=== PATIENT | male | born 1935 | race Caucasian/White ===

== ENCOUNTER 2024-09-26 15:49 | Emergency (ER) | payer MEDICARE ==
[2024-09-26 16:03] VITALS: TEMP 97.7
--- NOTE | 2024-09-26 16:54 | ED ---
Male Urogenital HPI - General Chief complaint: Urogenital Stated complaint: Urogenital Time Seen by Provider: 09/26/24 16:49 Source: patient, RN notes reviewed Mode of arrival: ambulatory Limitations: no limitations - History of Present Illness Initial comments: 89-year-old male presenting for hematuria x 4 days. States last Wednesday he began to notice light pink in his urine. This progressively worsened to dark red blood in the urine. He was seen at [facility] ER 2 days ago where they told him he had a UTI and was retaining urine via bladder scan so they placed a Mathews catheter. He has been taking Keflex for the UTI. Denies abdominal or flank pain. Denies fever, nausea, vomiting. States he does have a history of a enlarged prostate however has never had this issue before. States over the past day the Mathews has been draining dark red blood. He had an appointment with his reach truck operator today who looked at the Mathews and told him to come to the ER. Patient does take Plavix and Eliquis. - Related Data Allergies Allergy/AdvReac Type Severity Reaction Status Date / Time No Known Allergies Allergy Verified 09/26/24 16:03 Review of Systems ROS Statement: Those systems with pertinent positive or pertinent negative responses have been documented in the HPI. ROS Other: All systems not noted in ROS Statement are negative. Past Medical History Past Medical History: Atrial Fibrillation, Diabetes Mellitus, Hyperlipidemia, Hypertension Additional Past Medical History / Comment(s): gout, History of Any Multi-Drug Resistant Organisms: None Reported Past Surgical History: Cholecystectomy, Heart Catheterization With Stent Additional Past Surgical History / Comment(s): repaired ulcer Past Psychological History: No Psychological Hx Reported, Anxiety Smoking Status: Former smoker Past Alcohol Use History: Occasional Past Drug Use History: None Reported General Exam Limitations: no limitations General appearance: alert, in no apparent distress Head exam: Present: atraumatic, normocephalic, normal inspection Eye exam: Present: normal appearance, PERRL, EOMI. Absent: scleral icterus, conjunctival injection, periorbital swelling GI/Abdominal exam: Present: soft, normal bowel sounds. Absent: distended, tenderness, guarding, rebound, rigid exam: Present: other (Indwelling Mathews catheter draining dark red blood) Back exam: Absent: CVA tenderness (R), CVA tenderness (L) Neurological exam: Present: alert, oriented X3 Psychiatric exam: Present: normal affect, normal mood Skin exam: Present: warm, dry, intact, normal color. Absent: rash Course Vital Signs 09/26/24 09/26/24 15:57 18:15 Temperature 97.7 F Pulse Rate 60 69 Respiratory 20 16 Rate Blood Pressure 157/80 145/78 O2 Sat by Pulse 98 95 Oximetry Medical Decision Making - Medical Decision Making Was pt. sent in by a medical professional or institution (, DESTINY, TALENT SOLUTIONS MANAGER, urgent care, hospital, or fdc...) When possible be specific @ -Sent by patient's reach truck operator for hematuria Did you speak to anyone other than the patient for history (EMS, parent, family, police, friend...)? What history was obtained from this source @ -Patient's daughter supplemented history Did you review nursing and triage notes (agree or disagree)? Why? @ -I reviewed and agree with nursing and triage notes Were old charts reviewed (outside hosp., previous admission, EMS record, old EKG, old radiological studies, urgent care reports/EKG's, fdc records)? Report findings @ -No old charts were reviewed Differential Diagnosis (chest pain, altered mental status, abdominal pain women, abdominal pain men, vaginal bleeding, weakness, fever, dyspnea, syncope, headache, dizziness, GI bleed, back pain, seizure, CVA, palpatations, mental health, musculoskeletal)? @ -Urinary tract infection, Mathews catheter issue, nephrolithiasis, bladder carcinoma EKG interpreted by me (3pts min.). @ -None X-rays interpreted by me (1pt min.). @ -None done CT interpreted by me (1pt min.). @ -None done U/S interpreted by me (1pt. min.). @ -Ultrasound kidneys and bladder reveals no evidence for acute process, right renal cortical simple cysts, prostatomegaly What testing was considered but not performed or refused? (CT, X-rays, U/S, la bs)? Why? @ -None What meds were considered but not given or refused? Why? @ -None Did you discuss the management of the patient with other professionals (professionals i.e. DESTINY Deleon, TALENT SOLUTIONS MANAGER, lab, RT, psych nurse, social sciences instructor, patient services specialist, teacher, aircraft electronics technical officer, case therapist)? Give summary @ -No Was smoking cessation discussed for >3mins.? @ -No Was critical care preformed (if so, how long)? @ -No Were there social determinants of health that impacted care today? How? (Homelessness, low income, unemployed, alcoholism, drug addiction, transportation, low edu. Level, literacy, decrease access to med. care, shelter, rehab)? @ -No Was there de-escalation of care discussed even if they declined (Discuss DNR or withdrawal of care, Hospice)? DNR status @ -No What co-morbidities impacted this encounter? (DM, HTN, Smoking, COPD, CAD, Cancer, CVA, ARF, Chemo, Hep., AIDS, mental health diagnosis, sleep apnea, morbid obesity)? @ -None Was patient admitted / discharged? Hospital course, mention meds given and route, prescriptions, significant lab abnormalities, going to OR and other pertinent info. @ - discharge. 89-year-old male on Eliquis and Plavix presenting for hematuria x 4 days. Was diagnosed with UTI and urinary retention 2 days ago at [facility] where Mathews catheter was placed and patient was placed on Keflex. Denies any abdominal pain or flank pain. Patient is afebrile and well-anna earing. Mathews catheter is draining appropriately with dark red blood in the bag. Lab work remarkable for white blood cell count 10.8, hemoglobin normal at 13.5, creatinine 1.67 and BUN 41. Urinalysis reveals large amount of red blood cells and white blood cells, 4+ glucose and 2+ protein. Urine culture sent. Ultrasound kidneys and bladder reveals no evidence for acute process, right renal cortical simple cyst, prostatomegaly. Results were discussed with patient. Hematuria likely due to urinary tract infection and Mathews catheter on thinners. Patient's reach truck operator approved holding blood thinners for the night. Advised to continue Keflex and follow-up with urology. Appropriate return precautions discussed. Case was discussed with my ED attending Dr. Carbajal Undiagnosed new problem with uncertain prognosis? @ -No Drug Therapy requiring intensive monitoring for toxicity (Heparin, Nitro, Insulin, Cardizem)? @ -No Were any procedures done? @ -No Diagnosis/symptom? @ -Hematuria, urinary tract infection Acute, or Chronic, or Acute on Chronic? @ -Acute Uncomplicated (without systemic symptoms) or Complicated (systemic symptoms)? @ -Uncomplicated Side effects of treatment? @ -No Exacerbation, Progression, or Severe Exacerbation? @ -No Poses a threat to life or bodily function? How? (Chest pain, USA, MD, pneumonia, PE, COPD, DKA, ARF, appy, cholecystitis, CVA, Diverticulitis, Homicidal, Suicidal, threat to staff... and all critical care pts) @ -No - Lab Data Result diagrams: 09/26/24 17:07 09/26/24 17:07 Lab Results 09/26/24 09/26/24 09/26/24 Range/Units 17:07 17:07 17:07 WBC 10.8 H (3.8-10.6) k/uL RBC 5.08 (4.30-5.90) m/uL Hgb 13.5 (13.0-17.5) gm/dL Hct 43.8 (39.0-53.0) % MCV 86.1 (80.0-100.0) fL MCH 26.6 (25.0-35.0) pg MCHC 30.9 L (31.0-37.0) g/dL RDW 15.0 (11.5-15.5) % Plt Count 147 L (150-450) k/uL MPV 8.8 Neutrophils % 76 % Lymphocytes % 17 % Monocytes % 4 % Eosinophils % 1 % Basophils % 1 % Neutrophils # 8.2 H (1.3-7.7) k/uL Lymphocytes # 1.8 (1.0-4.8) k/uL Monocytes # 0.5 (0-1.0) k/uL Eosinophils # 0.1 (0-0.7) k/uL Basophils # 0.1 (0-0.2) k/uL Hypochromasia Slight PT (10.0-12.5) sec INR (<1.2) APTT (22.0-30.0) sec Sodium 135 L (137-145) mmol/L Potassium 4.3 (3.5-5.1) mmol/L Chloride 103 (98-107) mmol/L Carbon Dioxide 21 L (22-30) mmol/L Anion Gap 11 mmol/L BUN 41 H (9-20) mg/dL Creatinine 1.67 H (0.66-1.25) mg/dL Est GFR (CKD-EPI)AfAm 42 (>60 ml/min/1.73 sqM) Est GFR (CKD-EPI)NonAf 36 (>60 ml/min/1.73 sqM) Glucose 220 H (74-99) mg/dL Calcium 9.1 (8.4-10.2) mg/dL Total Bilirubin 0.7 (0.2-1.3) mg/dL AST 17 (17-59) U/L ALT 13 (4-49) U/L Alkaline Phosphatase 146 H (38-126) U/L Total Protein 6.2 L (6.3-8.2) g/dL Albumin 3.6 (3.5-5.0) g/dL Urine Color Dark Red Urine Appearance Turbid (Clear) Urine pH 5.5 (5.0-8.0) Ur Specific [place] 1.026 (1.001-1.035) Urine Protein 2+ H (Negative) Urine Glucose (UA) 4+ H (Negative) Urine Ketones Negative (Negative) Urine Blood Large H (Negative) Urine Nitrite Negative (Negative) Urine Bilirubin Negative (Negative) Urine Urobilinogen <2.0 (<2.0) mg/dL Ur Leukocyte Esterase Small H (Negative) Urine RBC >182 H (0-5) /hpf Urine WBC 164 H (0-5) /hpf Urine WBC Clumps Many H (None) /hpf Urine Yeast (Budding) Many H (None) /hpf 09/26/24 Range/Units 17:07 WBC (3.8-10.6) k/uL RBC (4.30-5.90) m/uL Hgb (13.0-17.5) gm/dL Hct (39.0-53.0) % MCV (80.0-100.0) fL MCH (25.0-35.0) pg MCHC (31.0-37.0) g/dL RDW (11.5-15.5) % Plt Count (150-450) k/uL MPV Neutrophils % % Lymphocytes % % Monocytes % % Eosinophils % % Basophils % % Neutrophils # (1.3-7.7) k/uL Lymphocytes # (1.0-4.8) k/uL Monocytes # (0-1.0) k/uL Eosinophils # (0-0.7) k/uL Basophils # (0-0.2) k/uL Hypochromasia PT 12.7 H (10.0-12.5) sec INR 1.2 H (<1.2) APTT 25.0 (22.0-30.0) sec Sodium (137-145) mmol/L Potassium (3.5-5.1) mmol/L Chloride (98-107) mmol/L Carbon Dioxide (22-30) mmol/L Anion Gap mmol/L BUN (9-20) mg/dL Creatinine (0.66-1.25) mg/dL Est GFR (CKD-EPI)AfAm (>60 ml/min/1.73 sqM) Est GFR (CKD-EPI)NonAf (>60 ml/min/1.73 sqM) Glucose (74-99) mg/dL Calcium (8.4-10.2) mg/dL Total Bilirubin (0.2-1.3) mg/dL AST (17-59) U/L ALT (4-49) U/L Alkaline Phosphatase (38-126) U/L Total Protein (6.3-8.2) g/dL Albumin (3.5-5.0) g/dL Urine Color Urine Appearance (Clear) Urine pH (5.0-8.0) Ur Specific [place] (1.001-1.035) Urine Protein (Negative) Urine Glucose (UA) (Negative) Urine Ketones (Negative) Urine Blood (Negative) Urine Nitrite (Negative) Urine Bilirubin (Negative) Urine Urobilinogen (<2.0) mg/dL Ur Leukocyte Esterase (Negative) Urine RBC (0-5) /hpf Urine WBC (0-5) /hpf Urine WBC Clumps (None) /hpf Urine Yeast (Budding) (None) /hpf Disposition Clinical Impression: Urinary tract infection, Hematuria Disposition: HOME SELF-CARE Condition: Stable Instructions (If sedation given, give patient instructions): Urinary Tract Infection in Men (ED) Additional Instructions: Follow-up with urology as discussed. Please return to the Emergency Department if symptoms worsen or any other concerns. Is patient prescribed a controlled substance at d/c from ED?: No Referrals: Sushant Mensah MD [Primary Care Provider] - 1-2 days Luis Felipe Montejo MD [STAFF PHYSICIAN] - 1-2 days Time of Disposition: 19:25
[2024-09-26 17:21] LABS: Basophils # (A) 0.1 k/uL (0-0.2); Basophils % (A) 1 %; Eosinophils # (A) 0.1 k/uL (0-0.7); Eosinophils % (A) 1 %; HCT 43.8 % (39.0-53.0); HGB 13.5 gm/dL (13.0-17.5); Hypochromasia Slight; Lymphocytes # (A) 1.8 k/uL (1.0-4.8); Lymphocytes % (A) 17 %; MCH 26.6 pg (25.0-35.0); MCHC 30.9 g/dL (31.0-37.0); MCV 86.1 fL (80.0-100.0); Mean Platelet Volume 8.8; Monocytes # (A) 0.5 k/uL (0-1.0); Monocytes % (A) 4 %; Neutrophils # (A) 8.2 k/uL (1.3-7.7); Neutrophils % (A) 76 %; Platelet Count 147 k/uL (150-450); RBC 5.08 m/uL (4.30-5.90); WBC 10.8 k/uL (3.8-10.6)
[2024-09-26 17:28] LABS: ALT 13 U/L (4-49); AST 17 U/L (17-59); African American GFR (CKD) 42 (>60 ml/min/1.73 sqM); Albumin 3.6 g/dL (3.5-5.0); Alkaline Phosphatase 146 U/L (38-126); Anion Gap 11 mmol/L; Blood Urea Nitrogen 41 mg/dL (9-20); Calcium 9.1 mg/dL (8.4-10.2); Carbon Dioxide 21 mmol/L (22-30); Chloride 103 mmol/L (98-107); Glucose 220 mg/dL (74-99); Non-African American GFR(CKD) 36 (>60 ml/min/1.73 sqM); Potassium 4.3 mmol/L (3.5-5.1); Sodium 135 mmol/L (137-145); Total Bilirubin 0.7 mg/dL (0.2-1.3); Total Protein 6.2 g/dL (6.3-8.2)
[2024-09-26 17:31] LABS: INR 1.2 (<1.2); Prothrombin Time 12.7 sec (10.0-12.5)
[2024-09-26 17:33] LABS: Appearance,Urine Turbid (Clear); Bilirubin,Urine Negative (Negative); Blood,Urine Large (Negative); Budding Yeast,Urine Many /hpf; Color,Urine Dark Red; Glucose,Urine (UA) 4+ (Negative); Ketones,Urine Negative (Negative); Leukocyte Esterase,Urine Small (Negative); Nitrite,Urine Negative (Negative); PH, Urine 5.5 (5.0-8.0); Protein,Urine 2+ (Negative); RBC,Urine >182 /hpf (0-5); Urobilinogen,Urine <2.0 mg/dL (<2.0); WBC,Urine 164 /hpf (0-5)
[2024-09-26 17:34] LABS: Specific Gravity,Urine 1.026 (1.001-1.035)
--- NOTE | 2024-09-26 18:19 | US ---
EXAMINATION TYPE: US renals and bladder DATE OF EXAM: 09/26/2024 COMPARISON: NONE CLINICAL INDICATION: Male, 89 years old with history of painless hematuria; patient states painless h ematuria. cannon TECHNIQUE: Grayscale imaging of the bilateral kidneys and urinary bladder: FINDINGS: EXAM MEASUREMENTS: Right Kidney: 11.6 x 5.8 x 5.2 cm Left Kidney: 10.8 x 4.4 x 4.8 cm slightly limited due to overlying bowel gas and rib shadows Right Kidney: multiple anechoic areas seen, largest measuring 1.7 x 1.4 x 1.5cm Left Kidney: wnl as best seen Bladder: cannon catheter seen Bilateral Jets seen: unable to evaluate prominent prostate seen measuring 5.0cm There is no evidence for hydronephrosis at this point in time. No nephrolithiasis is seen. No caitie s are identified. The urinary bladder is anechoic. IMPRESSION: 1. No evidence for acute process. 2. Right renal cortical simple cysts. 3. Prostatomegaly, correlate with serum PSA. [facility], , 09/26/2024 6:16 PM
[2024-09-26 19:38] VITALS: BP 157/75; PULSE 64; RESP 17
== END 2024-09-26 19:43 | disposition home or self-care (01) ==
LOC: EC 15:49
DX: N39.0 Urinary tract infection, site not specified (principal); Z87.891 Personal history of nicotine dependence
CPT/HCPCS: 36415; 51702; 76770; 80053; 81001; 85025; 85610; 85730; 87086; 99284

== ENCOUNTER 2024-10-26 05:48 | Day surgery (SDC) | payer MEDICARE ==
[2024-10-26] MEDS: IV FLUID CONTINUATION 1,000 ML IV ONE (06:47)
[2024-10-26] MEDS: DEXAMETHASONE SOD PHOSPHATE 4 MG/ML 1 ML VIAL IV ONE (06:54)
[2024-10-26] MEDS: LACTATED RINGERS 1,000 ML IV SCH (06:54)
[2024-10-26] MEDS: ONDANSETRON 4 MG/2 ML VIAL IVP ONE (06:54)
[2024-10-26 06:57] LABS: Glucose,Whole Blood 240 mg/dL (70-110)
[2024-10-26] MEDS ORDERED: HYDROmorphone 0.5 MG/0.5 ML SYRINGE IVP PRN (07:00)
[2024-10-26] MEDS: GENTAMICIN 100 MG in SODIUM CHLORIDE 0.9% 100 ML IVPB PRN (07:03)
[2024-10-26] MEDS ORDERED: ROCURONIUM 10 MG/ML (5 ML VIAL) IV ONE (08:12)
[2024-10-26] MEDS ORDERED: LIDOCAINE 1% INJ 10MG/ML (20 ML MDV) ONE (08:12)
[2024-10-26] MEDS ORDERED: PROPOFOL 10 MG/ML 20 ML VIAL IV ONE (08:12)
[2024-10-26] MEDS ORDERED: SUCCINYLCHOLINE CHLORIDE 200 MG/10 ML VIAL IV ONE (08:12)
[2024-10-26] MEDS ORDERED: NEOSTIGMINE 1 MG/ML 10 ML VIAL ONE (08:12)
[2024-10-26] MEDS ORDERED: fentaNYL (PF) 50 MCG/ML 2 ML AMP ONE (08:12)
[2024-10-26] MEDS ORDERED: GLYCOPYRROLATE 0.2 MG/ML 2 ML VIAL ONE (08:12)
--- NOTE | 2024-10-26 08:14 | P.HPIHPCON ---
History of Present Illness H&P Date: 10/24/24 Chief Complaint: Gross hematuria, bladder stone, bladder tumor This is an 89-year-old male with history of gross hematuria, underwent a cystoscopy which showed evidence of a bladder stone, with a possible mass beyond the bladder stone. Discussed given his persistent gross hematuria I do recommend proceeding with cystolitholapaxy, with a possible TURBT. He is aware of the risk which include but not limited to bleeding, infection, bladder perforation Consent for Procedure: I have explained the operation/procedure to the patient, including the risks, benefits, side effects, alternative therapies (including not receiving the proposed treatment or service), the likelihood of the patient achieving his/her goals, and potential recuperation problems for the procedure/sedation/analgesia, as well as any blood products, if indicated. I also explained to the patient the risks, benefits and side effects of the alternatives, as well as the risks related to not receiving the proposed procedure, care, treatment, or services. Past Medical History Past Medical History: Atrial Fibrillation, Cancer, Diabetes Mellitus, Deep Vein Thrombosis (DVT), Hyperlipidemia, Hypertension, Prostate Disorder, Skin Disorder Additional Past Medical History / Comment(s): gout, bloody urine, lft leg dvt, skin cancer, gets "shot once a month for skin sores" frquent urination History of Any Multi-Drug Resistant Organisms: None Reported Past Surgical History: Cholecystectomy, Heart Catheterization With Stent Additional Past Surgical History / Comment(s): repaired ulcer Past Anesthesia/Blood Transfusion Reactions: No Reported Reaction Date of Last Stent Placement:: unk Smoking Status: Former smoker Medications and Allergies Home Medications Medication Instructions Recorded Confirmed Type Apixaban [Eliquis] 5 mg PO BID 10/24/24 10/26/24 History Atorvastatin [Lipitor] 20 mg PO HS 10/24/24 10/26/24 History Cetirizine HCl 10 mg PO DAILY 10/24/24 10/26/24 History Clopidogrel [Plavix] 75 mg PO DAILY 10/24/24 10/26/24 History Empagliflozin [Jardiance] 25 mg PO DAILY 10/24/24 10/26/24 History Finasteride [Proscar] 5 mg PO DAILY 10/24/24 10/26/24 History Fluconazole 150 mg PO DAILY 10/24/24 10/26/24 History Glimepiride 4 mg PO BID 10/24/24 10/26/24 History Losartan Potassium 25 mg PO DAILY 10/24/24 10/26/24 History Metoprolol Tartrate [Lopressor] 25 mg PO BID 10/24/24 10/26/24 History Semaglutide [Ozempic] 1 dose INJ SA 10/24/24 10/26/24 History Tamsulosin [Flomax] 0.4 mg PO BID 10/24/24 10/26/24 History hydrOXYzine HCL [Hydroxyzine HCl] 10 mg PO DIRECTED PRN 10/24/24 10/26/24 History Allergies Allergy/AdvReac Type Severity Reaction Status Date / Time steroids Allergy Mild Swelling Uncoded 10/26/24 06:16 Surgical - Exam - General no distress, no pain - Eyes normal ocular movement, no pale - ENT normal nares, normal mucosa - Respiratory normal expansion, normal respiratory effort - Abdomen Abdomen: soft, non tender, no distended - Psychiatric oriented to time, oriented to person, oriented to place Assessment and Plan Assessment: OR for cystoscopy, cystolitholapaxy, possible TURBT
[2024-10-26] MEDS: ceFAZolin 2 GM in DEXTROSE 5% IN WATER 50 ML IVPB PRN (08:15)
[2024-10-26 09:15] VITALS: TEMP 98.1
--- NOTE | 2024-10-26 09:25 | P.OP ---
Date of Procedure: 10/26/24 Preoperative Diagnosis: bladder stone, bladder mass Postoperative Diagnosis: same Procedure(s) Performed: Cystolithalopaxy, TURBT(medium) Anesthesia: LUCIENA Surgeon: [place] Estimated Blood Loss (ml): 10 Pathology: other (bladder mass) Condition: stable Disposition: PACU Indications for Procedure: This is an 89-year-old male with history of gross hematuria, underwent a cystoscopy which showed evidence of a bladder stone, with a possible mass beyond the bladder stone. Discussed given his persistent gross hematuria I do recommend proceeding with cystolitholapaxy, with a possible TURBT. 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 He was prepped and draped in sterile fashion placed in a dorsolithotomy position. Cystoscope fitted 21 Irish sheath was inserted per urethra, cystoscopy was performed showed a small bladder stone along the lateral wall, with a bladder tumor adjacent to the tumor. Prostate was slightly enlarged and mildly occlusive. Bladder was moderately trabeculated. Using the holmium laser the stone was fragmented, stone fragments were irrigated using the stone basket. 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 Area of bleeding was controlled using fulguration, tumor edges was also fulgurated. Repeat cystoscopy showed no evidence of bleeding, or bladder perforation. At this time resectoscope withdrawn and a 20 Irish Mathews was placed with return of clear urine, the catheter was irrigated to clear. Patient tolerated procedure well was taken to recovery in stable condition
[2024-10-26 11:39] VITALS: RESP 18
[2024-10-26 12:17] VITALS: BP 131/65; PULSE 52
== END 2024-10-26 12:17 | disposition home or self-care (01) ==
LOC: OR 05:48
PROVIDERS: ATTEND Urology
DX: C67.2 Malignant neoplasm of lateral wall of bladder (principal); N32.89 Other specified disorders of bladder; N21.0 Calculus in bladder; N40.1 Benign prostatic hyperplasia with lower urinary tract symptoms; N13.8 Other obstructive and reflux uropathy; R31.0 Gross hematuria; I48.91 Unspecified atrial fibrillation; I10 Essential (primary) hypertension; I25.10 Atherosclerotic heart disease of native coronary artery without angina pectoris; Z95.1 Presence of aortocoronary bypass graft; Z95.5 Presence of coronary angioplasty implant and graft; E11.9 Type 2 diabetes mellitus without complications; E78.5 Hyperlipidemia, unspecified; M10.9 Gout, unspecified; Z79.01 Long term (current) use of anticoagulants; Z79.02 Long term (current) use of antithrombotics/antiplatelets; Z79.85 Long-term (current) use of injectable non-insulin antidiabetic drugs; Z79.84 Long term (current) use of oral hypoglycemic drugs; Z79.899 Other long term (current) drug therapy; Z87.891 Personal history of nicotine dependence; Z86.718 Personal history of other venous thrombosis and embolism; Z88.8 Allergy status to other drugs, medicaments and biological substances
CPT/HCPCS: 52317; 52235; 88307; C1769; J0330; J1100; J2710; J0690; J2405; J2003; J3010; J1580; J2704; J1596

== ENCOUNTER 2024-11-03 14:08 | Emergency (ER) | payer MEDICARE ==
[2024-11-03 14:34] VITALS: PULSE 64; TEMP 97.4
--- NOTE | 2024-11-03 16:17 | ED ---
Male Urogenital HPI - General Chief complaint: Urogenital Stated complaint: Urogenital issues, post op comps Time Seen by Provider: 11/03/24 15:13 Source: patient, RN notes reviewed Mode of arrival: wheelchair Limitations: no limitations - History of Present Illness Initial comments: This is an 89-year-old male who presents to the emergency department for hematuria. On 10/26 patient had a cystolitholopaxy and TURBT with Dr. Chino. On 10/30 he followed up with urology and had his Mathews catheter removed. He states that he did fine for the first day, however since then he has had hematuria that is progressively worsening. Today he essentially urinated straight blood and started to feel dizzy and lightheaded. He is on Plavix and Eliquis, which he j ust resumed yesterday. He finished a course of antibiotics yesterday as well. Denies any abdominal pain. - Related Data Home Medications Medication Instructions Recorded Confirmed Apixaban [Eliquis] 5 mg PO BID 10/24/24 11/03/24 Atorvastatin [Lipitor] 20 mg PO HS 10/24/24 11/03/24 Cetirizine HCl 10 mg PO DAILY 10/24/24 11/03/24 Clopidogrel [Plavix] 75 mg PO DAILY 10/24/24 11/03/24 Empagliflozin [Jardiance] 25 mg PO DAILY 10/24/24 11/03/24 Finasteride [Proscar] 5 mg PO HS 10/24/24 11/03/24 Glimepiride 4 mg PO BID-W/MEALS 10/24/24 11/03/24 Metoprolol Tartrate [Lopressor] 25 mg PO BID 10/24/24 11/03/24 Tamsulosin [Flomax] 0.4 mg PO BID 10/24/24 11/03/24 hydrOXYzine HCL [Hydroxyzine HCl] 10 mg PO HS 10/24/24 11/03/24 Losartan [Cozaar] 25 mg PO DAILY 11/03/24 11/03/24 Pantoprazole [Protonix] 40 mg PO DAILY 11/03/24 11/03/24 Semaglutide [Ozempic] 1 mg SQ SA 11/03/24 11/03/24 Allergies Allergy/AdvReac Type Severity Reaction Status Date / Time steroids Allergy Mild Swelling Uncoded 11/03/24 17:04 Review of Systems ROS Statement: Those systems with pertinent positive or pertinent negative responses have been documented in the HPI. ROS Other: All systems not noted in ROS Statement are negative. Past Medical History Past Medical History: Atrial Fibrillation, Cancer, Diabetes Mellitus, Deep Vein Thrombosis (DVT), Hyperlipidemia, Hypertension, Prostate Disorder, Skin Disorder Additional Past Medical History / Comment(s): gout, bloody urine, lft leg dvt, skin cancer, gets "shot once a month for skin sores" frquent urination History of Any Multi-Drug Resistant Organisms: None Reported Past Surgical History: Cholecystectomy, Heart Catheterization With Stent Additional Past Surgical History / Comment(s): repaired ulcer Past Anesthesia/Blood Transfusion Reactions: No Reported Reaction Date of Last Stent Placement:: unk Past Psychological History: Anxiety Smoking Status: Former smoker General Exam Limitations: no limitations General appearance: alert, in no apparent distress Head exam: Present: atraumatic, normocephalic, normal inspection Respiratory exam: Present: normal lung sounds bilaterally. Absent: respiratory distress, wheezes, rales, rhonchi, stridor Cardiovascular Exam: Present: regular rate, normal rhythm GI/Abdominal exam: Present: soft, normal bowel sounds. Absent: distended, tenderness, guarding, rebound, rigid Neurological exam: Present: alert, oriented X3, CN II-XII intact Psychiatric exam: Present: normal affect, normal mood Skin exam: Present: warm, dry, intact, normal color. Absent: rash Course Vital Signs 11/03/24 11/03/24 14:30 18:15 Temperature 97.4 F L Pulse Rate 64 64 Respiratory 16 18 Rate Blood Pressure 125/78 123/74 O2 Sat by Pulse 96 97 Oximetry Medical Decision Making - Medical Decision Making This is an 89 year old male who presents to the emergency department for lali turia. Was pt. sent in by a medical professional or institution? @ -No Did you speak to anyone other than the patient for history? @ -No Did you review nursing and triage notes? @ -Yes, and I agree, it is accurate with regards to the patient's symptoms. Were old charts reviewed? @ -No Differential Diagnosis? @ -Tumor, injury, infection, coagulopathy, this is not meant to be an all- inclusive list. EKG interpreted by me (3pts min.)? @ -EKG interpreted by me demonstrating the following: Sinus rhythm. Ventricular rate 65 bpm, [place] interval 239 ms, QRS duration 120 ms, QTc 385 ms. X-rays interpreted by me (1pt min.)? @ -Not obtained. CT interpreted by me (1pt min.)? @ -Not obtained. U/S interpreted by me (1pt. min.)? @ -Renal ultrasound obtained. My interpretation identifies no hydronephrosis bilaterally. What testing was considered but not performed? (CT, X-rays, U/S, labs)? Why? @ -None What meds were considered but not given? Why? @ -None Did you discuss the management of the patient with other professionals? @ -Yes, Dr. Chino, urology, who advised holding his blood thinners for another couple of days and following up in the office next week. Did you reconcile home meds? @ -No Was smoking cessation discussed for >3mins.? @ -No Was critical care preformed (if so, how long)? @ -No Were there social determinants of health that impacted care today? How? (Homelessness, low income, unemployed, alcoholism, drug addiction, transportation, low edu. Level, literacy, decrease access to med. care, skilled nursing, rehab)? @ -No Was there de-escalation of care discussed even if they declined? (Discuss DNR or withdrawal of care, Hospice)? @ -No What co-morbidities impacted this encounter? (DM, HTN, Smoking, COPD, CAD, Cancer, CVA, Hep., AIDS, mental health diagnosis, sleep apnea, morbid obesity)? @ -None Was patient admitted / discharged? @ -Discharged. Patient's hemoglobin is only slightly decreased at 12.6. Lactic acid mildly elevated at 2.1. Lab work otherwise unremarkable. Urinalys is demonstrates a large amount of blood and elevation in WBCs. Rare bacteria noted. Urine sent for culture. The amount of blood makes it difficult to fully characterize. He also just finished antibiotics yesterday. Renal ultrasound obtained. No hydronephrosis was identified. 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 Bladder scan performed and his postvoid residual was only 60 mL. Case discussed with Dr. Chino, urology. He advised having the patient hold his blood thinners for another couple of days and following up with him in the office next week. This was discussed with the patient. He is concerned about the frequent urination and poor bladder emptying. His postvoid residual suggests that he is able to fully empty his bladder. We did offer to replace his Mathews catheter, however he declined. There is also risk of his catheter clogging given the hematuria and possibility for blood clots. His daughter advised that she will call Dr. Chino's office on Wednesday for a follow-up appointment that week. Advised to hold his blood thinners for another couple of days and strict return parameters were discussed as well. Patient discharged home in stable condition. Case discussed with ED attending Dr. Dixon. Undiagnosed new problem with uncertain prognosis? @ -None Drug Therapy requiring intensive monitoring for toxicity (Heparin, Nitro, Insulin, Cardizem)? @ -None Were any procedures done? @ -None Diagnosis/symptom? @ -Hematuria Acute, or Chronic, or Acute on Chronic? @ -Acute Uncomplicated (without systemic symptoms) or Complicated (systemic symptoms)? @ -Uncomplicated Side effects of treatment? @ -None Exacerbation, Progression, or Severe Exacerbation] @ -Not applicable Poses a threat to life or bodily function? @ -No - Lab Data Result diagrams: 11/03/24 16:41 11/03/24 16:41 Lab Results 11/03/24 11/03/24 11/03/24 Range/Units 16:41 16:41 16:41 WBC 6.93 (4.50-10.00) 10*3/uL RBC 4.70 (4.40-5.60) 10*6/uL Hgb 12.6 L (13.0-17.0) g/dL Hct 39.2 L (39.6-50.0) % MCV 83.4 (80.0-97.0) fL MCH 26.8 L (27.0-32.0) pg MCHC 32.1 (32.0-37.0) g/dL Plt Count 149 (140-440) 10*3/uL MPV 10.8 (9.5-12.2) fL Immature Gran % (Auto) 1.0 % Neutrophils % 51.1 % Lymphocytes % 35.2 % Monocytes % 8.5 % Eosinophils % 3.3 % Basophils % 0.9 % Immature Gran # 0.07 H (0.00-0.04) 10*3/uL Neutrophils # 3.54 (1.80-7.70) 10*3/uL Lymphocytes # 2.44 (0.90-5.00) 10*3/uL Monocytes # 0.59 (0.20-1.00) 10*3/uL Eosinophils # 0.23 (0.04-0.35) 10*3/uL Basophils # 0.06 (0.00-0.10) 10*3/uL PT 13.0 H (10.0-12.5) sec INR 1.2 H (<1.2) APTT 26.2 (22.0-30.0) sec Sodium 134 L (137-145) mmol/L Potassium 4.9 (3.5-5.1) mmol/L Chloride 102 (98-107) mmol/L Carbon Dioxide 19 L (22-30) mmol/L Anion Gap 13 mmol/L BUN 35 H (9-20) mg/dL Creatinine 1.51 H (0.66-1.25) mg/dL Est GFR (CKD-EPI)AfAm 48 (>60 ml/min/1.73 sqM) Est GFR (CKD-EPI)NonAf 41 (>60 ml/min/1.73 sqM) Glucose 266 H (74-99) mg/dL Lactic Ac Sepsis Rflx Plasma Lactic Acid Mehran (0.7-2.0) mmol/L Calcium 9.4 (8.4-10.2) mg/dL Total Bilirubin 0.6 (0.2-1.3) mg/dL AST 19 (17-59) U/L ALT 19 (4-49) U/L Alkaline Phosphatase 168 H (38-126) U/L Total Protein 6.2 L (6.3-8.2) g/dL Albumin 3.6 (3.5-5.0) g/dL Urine Color Urine Appearance (Clear) Urine RBC (0-5) /hpf Urine WBC (0-5) /hpf Urine Bacteria (None) /hpf 11/03/24 11/03/24 11/03/24 Range/Units 16:41 16:52 17:05 WBC (4.50-10.00) 10*3/uL RBC (4.40-5.60) 10*6/uL Hgb (13.0-17.0) g/dL Hct (39.6-50.0) % MCV (80.0-97.0) fL MCH (27.0-32.0) pg MCHC (32.0-37.0) g/dL Plt Count (140-440) 10*3/uL MPV (9.5-12.2) fL Immature Gran % (Auto) % Neutrophils % % Lymphocytes % % Monocytes % % Eosinophils % % Basophils % % Immature Gran # (0.00-0.04) 10*3/uL Neutrophils # (1.80-7.70) 10*3/uL Lymphocytes # (0.90-5.00) 10*3/uL Monocytes # (0.20-1.00) 10*3/uL Eosinophils # (0.04-0.35) 10*3/uL Basophils # (0.00-0.10) 10*3/uL PT (10.0-12.5) sec INR (<1.2) APTT (22.0-30.0) sec Sodium (137-145) mmol/L Potassium (3.5-5.1) mmol/L Chloride (98-107) mmol/L Carbon Dioxide (22-30) mmol/L Anion Gap mmol/L BUN (9-20) mg/dL Creatinine (0.66-1.25) mg/dL Est GFR (CKD-EPI)AfAm (>60 ml/min/1.73 sqM) Est GFR (CKD-EPI)NonAf (>60 ml/min/1.73 sqM) Glucose (74-99) mg/dL Lactic Ac Sepsis Rflx Y Plasma Lactic Acid Mehran 2.1 H* (0.7-2.0) mmol/L Calcium (8.4-10.2) mg/dL Total Bilirubin (0.2-1.3) mg/dL AST (17-59) U/L ALT (4-49) U/L Alkaline Phosphatase (38-126) U/L Total Protein (6.3-8.2) g/dL Albumin (3.5-5.0) g/dL Urine Color Dark Red Urine Appearance Bloody (Clear) Urine RBC >182 H (0-5) /hpf Urine WBC >182 H (0-5) /hpf Urine Bacteria Few H (None) /hpf - Radiology Data Radiology results: report reviewed, image reviewed Disposition Clinical Impression: Hematuria Disposition: HOME SELF-CARE Instructions (If sedation given, give patient instructions): Hematuria (ED) Additional Instructions: Return to the emergency department with any new, worsening, or concerning symptoms. Hold your blood thinners for another 2 [address] Chino's office on Wednesday morning for a sooner follow-up appointment. If you get to the point where you are unable to urinate altogether or develop increasing abdominal pain, especially if it occurs even when you are not urinating, you need to return to the emergency department. Is patient prescribed a controlled substance at d/c from ED?: No Referrals: Sushant Mensah MD [Primary Care Provider] - 1-2 days Rancho Chino MD [STAFF PHYSICIAN] - 1-2 days Time of Disposition: 17:53
--- NOTE | 2024-11-03 16:42 | US ---
EXAMINATION TYPE: US kidneys/renal and bladder DATE OF EXAM: 11/03/2024 COMPARISON: 09/26/24 CLINICAL INDICATION: Male, 89 years old with history of Hematuria; gross hematuria, cystoscope last T hursday with removal of tumor TECHNIQUE: Grayscale imaging of the bilateral kidneys and urinary bladder: FINDINGS: EXAM MEASUREMENTS: Right Kidney: 11.3x5.0x4.5 cm Left Kidney: 10.8x4.5x4.0 cm Right Kidney: cortical cysts, largest measures 1.3x1.2x1.4cm, no hydro Left Kidney: echogenic focus measures 0.5cm, no hydro or masses Bladder: there is a 3.3x2.3x1.4cm area of focal thickening at the right posterior bladder wall at th e UVJ. There is a echogenic rimmed sonolucent area in this area as well ?ureterocele? Right jet not v isualized, no hydro. Bilateral Jets seen: Right jet not visualized There is no evidence for hydronephrosis at this point in time. No right renal calculi. Right simple a ppearing renal cortical cysts redemonstrated. Nonobstructing left renal 0.5 cm echogenic focus with l ayering appearance. No shadowing. Corticomedullary differentiation is maintained bilaterally. There i s focal thickening at the right posterior urinary bladder wall at the ureterovesical junction with an echogenic rim sonolucent area. Layering nonvascular material within the urinary bladder. Right urete ral jet not visualized. Enlarged prostate gland with incidental pulmonary place. IMPRESSION: 1. No hydronephrosis. 2. Suggested right ureterocele with adjacent focal wall thickening. Cannot exclude residual tumor ve rsus inflammatory changes from recent surgery. Consider direct visualization as clinically indicated versus CT urogram. 3. Layering debris within urinary bladder likely representing blood products in the setting of repor trinity hematuria. 4. Suggestive left renal milk of calcium cyst versus nonobstructing nonshadowing calculus. [facility], , 11/03/2024 4:40 PM
[2024-11-03 16:46] LABS: Basophils # (A) 0.06 10*3/uL (0.00-0.10); Basophils % (A) 0.9 %; Eosinophils # (A) 0.23 10*3/uL (0.04-0.35); Eosinophils % (A) 3.3 %; HCT 39.2 % (39.6-50.0); HGB 12.6 g/dL (13.0-17.0); Lymphocytes # (A) 2.44 10*3/uL (0.90-5.00); Lymphocytes % (A) 35.2 %; MCH 26.8 pg (27.0-32.0); MCHC 32.1 g/dL (32.0-37.0); MCV 83.4 fL (80.0-97.0); Mean Platelet Volume 10.8 fL (9.5-12.2); Monocytes # (A) 0.59 10*3/uL (0.20-1.00); Monocytes % (A) 8.5 %; Neutrophils # (A) 3.54 10*3/uL (1.80-7.70); Neutrophils % (A) 51.1 %; Platelet Count 149 10*3/uL (140-440); RDW 14.6 % (11.5-14.5); WBC 6.93 10*3/uL (4.50-10.00)
[2024-11-03 17:07] LABS: INR 1.2 (<1.2); Partial Thromboplastin Time 26.2 sec (22.0-30.0)
[2024-11-03 17:13] LABS: Bacteria,Urine Few /hpf; RBC,Urine >182 /hpf (0-5); WBC,Urine >182 /hpf (0-5)
[2024-11-03 17:14] LABS: ALT 19 U/L (4-49); AST 19 U/L (17-59); African American GFR (CKD) 48 (>60 ml/min/1.73 sqM); Albumin 3.6 g/dL (3.5-5.0); Alkaline Phosphatase 168 U/L (38-126); Anion Gap 13 mmol/L; Blood Urea Nitrogen 35 mg/dL (9-20); Calcium 9.4 mg/dL (8.4-10.2); Carbon Dioxide 19 mmol/L (22-30); Chloride 102 mmol/L (98-107); Glucose 266 mg/dL (74-99); Non-African American GFR(CKD) 41 (>60 ml/min/1.73 sqM); Potassium 4.9 mmol/L (3.5-5.1); Sodium 134 mmol/L (137-145); Total Bilirubin 0.6 mg/dL (0.2-1.3); Total Protein 6.2 g/dL (6.3-8.2)
[2024-11-03 17:14] LABS: Appearance,Urine Bloody (Clear); Color,Urine Dark Red
[2024-11-03 18:42] VITALS: BP 123/74; RESP 18
== END 2024-11-03 18:44 | disposition home or self-care (01) ==
LOC: EC 14:08
DX: R31.9 Hematuria, unspecified (principal); Z87.891 Personal history of nicotine dependence; Z79.01 Long term (current) use of anticoagulants; Z79.02 Long term (current) use of antithrombotics/antiplatelets; Z98.890 Other specified postprocedural states; Z88.8 Allergy status to other drugs, medicaments and biological substances
CPT/HCPCS: 36415; 51798; 76770; 80053; 81001; 83605; 85025; 85610; 85730; 87086; 93005; 99284

== ENCOUNTER 2025-01-02 17:53 | Inpatient (IN) | payer MEDICARE ==
[2025-01-02 18:43] LABS: Basophils # (A) 0.07 10*3/uL (0.00-0.10); Basophils % (A) 0.9 %; Eosinophils # (A) 0.24 10*3/uL (0.04-0.35); Eosinophils % (A) 3.0 %; HCT 41.9 % (39.6-50.0); HGB 13.3 g/dL (13.0-17.0); Lymphocytes # (A) 2.81 10*3/uL (0.90-5.00); Lymphocytes % (A) 35.7 %; MCH 26.2 pg (27.0-32.0); MCHC 31.7 g/dL (32.0-37.0); MCV 82.5 fL (80.0-97.0); Monocytes # (A) 0.67 10*3/uL (0.20-1.00); Monocytes % (A) 8.5 %; Neutrophils # (A) 3.87 10*3/uL (1.80-7.70); Neutrophils % (A) 49.1 %; Platelet Count 191 10*3/uL (140-440); RBC 5.08 10*6/uL (4.40-5.60); RDW 15.2 % (11.5-14.5); WBC 7.88 10*3/uL (4.50-10.00)
[2025-01-02 18:53] LABS: ALT 37 U/L (4-49); AST 32 U/L (17-59); African American GFR (CKD) 43 (>60 ml/min/1.73 sqM); Albumin 3.6 g/dL (3.5-5.0); Alkaline Phosphatase 187 U/L (38-126); Anion Gap 14 mmol/L; Blood Urea Nitrogen 43 mg/dL (9-20); Calcium 9.0 mg/dL (8.4-10.2); Carbon Dioxide 16 mmol/L (22-30); Chloride 106 mmol/L (98-107); Glucose 162 mg/dL (74-99); Non-African American GFR(CKD) 37 (>60 ml/min/1.73 sqM); Potassium 4.2 mmol/L (3.5-5.1); Sodium 136 mmol/L (137-145); Total Protein 6.2 g/dL (6.3-8.2)
[2025-01-02 19:04] LABS: INR 1.2 (<1.2); Partial Thromboplastin Time 27.2 sec (22.0-30.0); Prothrombin Time 12.5 sec (10.0-12.5)
--- NOTE | 2025-01-02 19:59 | ED ---
General Adult HPI - General Source: patient, family, RN notes reviewed Mode of arrival: ambulatory Limitations: no limitations <Richi Fountain - Last Filed: 01/02/25 23:04> <Dinorah Johnson - Last Filed: 01/03/25 05:44> - General Chief complaint: Urogenital Stated complaint: blood in urine Time Seen by Provider: 01/02/25 18:06 - History of Present Illness Initial comments: 89-year-old male presents emergency department with family for evaluation hematuria. Patient states he had a tumor removed several weeks ago by Dr. Chino states that he did develop a urinary tract infection shortly after. Patient states that he finished antibiotics initially thought the burning sensation was improving but has returned. Patient states that he developed blood in his urine that is mostly blood no clots denies fevers chills no flank pain patient contacted urologist advised to come emergency department. (Richi Fountain) - Related Data Home Medications Medication Instructions Recorded Confirmed Apixaban [Eliquis] 5 mg PO BID 10/24/24 11/03/24 Atorvastatin [Lipitor] 20 mg PO HS 10/24/24 11/03/24 Cetirizine HCl 10 mg PO DAILY 10/24/24 11/03/24 Clopidogrel [Plavix] 75 mg PO DAILY 10/24/24 11/03/24 Empagliflozin [Jardiance] 25 mg PO DAILY 10/24/24 11/03/24 Finasteride [Proscar] 5 mg PO HS 10/24/24 11/03/24 Glimepiride 4 mg PO BID-W/MEALS 10/24/24 11/03/24 Metoprolol Tartrate [Lopressor] 25 mg PO BID 10/24/24 11/03/24 Tamsulosin [Flomax] 0.4 mg PO BID 10/24/24 11/03/24 hydrOXYzine HCL [Hydroxyzine HCl] 10 mg PO HS 10/24/24 11/03/24 Losartan [Cozaar] 25 mg PO DAILY 11/03/24 11/03/24 Pantoprazole [Protonix] 40 mg PO DAILY 11/03/24 11/03/24 Semaglutide [Ozempic] 1 mg SQ SA 11/03/24 11/03/24 Allergies Allergy/AdvReac Type Severity Reaction Status Date / Time steroids Allergy Mild Swelling Uncoded 11/03/24 17:04 Review of Systems ROS Other: All systems not noted in ROS Statement are negative. <Richi Fountain - Last Filed: 01/02/25 23:04> ROS Other: All systems not noted in ROS Statement are negative. <Dinorah Johnson - Last Filed: 01/03/25 05:44> ROS Statement: Those systems with pertinent positive or pertinent negative responses have been documented in the HPI. Past Medical History Past Medical History: Atrial Fibrillation, Cancer, Diabetes Mellitus, Deep Vein Thrombosis (DVT), Hyperlipidemia, Hypertension, Prostate Disorder, Skin Disorder Additional Past Medical History / Comment(s): gout, bloody urine, lft leg dvt, skin cancer, gets "shot once a month for skin sores" frquent urination History of Any Multi-Drug Resistant Organisms: None Reported Past Surgical History: Cholecystectomy, Heart Catheterization With Stent Additional Past Surgical History / Comment(s): repaired ulcer, bladder tumor removed 11/19 Past Anesthesia/Blood Transfusion Reactions: No Reported Reaction Date of Last Stent Placement:: unk Past Psychological History: Anxiety Smoking Status: Former smoker <Richi Fountain - Last Filed: 01/02/25 23:04> General Exam Limitations: no limitations General appearance: alert, in no apparent distress Head exam: Present: atraumatic, normocephalic, normal inspection Eye exam: Present: normal appearance, PERRL, EOMI. Absent: scleral icterus, conjunctival injection, periorbital swelling ENT exam: Present: normal exam, normal oropharynx, mucous membranes moist Neck exam: Present: normal inspection, full ROM. Absent: tenderness, meningismus, lymphadenopathy Respiratory exam: Present: normal lung sounds bilaterally. Absent: respiratory distress, wheezes, rales, rhonchi, stridor Cardiovascular Exam: Present: regular rate, normal rhythm, normal heart sounds. Absent: systolic murmur, diastolic murmur, rubs, gallop, clicks GI/Abdominal exam: Present: soft, normal bowel sounds. Absent: distended, tenderness, guarding, rebound, rigid <Richi Fountain - Last Filed: 01/02/25 23:04> Course Vital Signs 01/02/25 01/03/25 01/03/25 18:09 02:56 05:09 Temperature 97.4 F L Pulse Rate 60 101 H 92 Respiratory 20 20 18 Rate Blood Pressure 135/85 132/98 139/79 O2 Sat by Pulse 96 99 98 Oximetry Medical Decision Making - Lab Data Result diagrams: 01/02/25 18:25 01/02/25 18:25 <Richi Fountain - Last Filed: 01/02/25 23:04> - Lab Data Result diagrams: 01/02/25 18:25 01/02/25 18:25 <Dinorah Johnson - Last Filed: 01/03/25 05:44> - Medical Decision Making Was pt. sent in by a medical professional or institution (, PA, DATA PROCESSING MANAGER, urgent care, hospital, or longterm...) When possible be specific @ -Urology Did you speak to anyone other than the patient for history (EMS, parent, family, police, friend...)? What history was obtained from this source @ -No Did you review nursing and triage notes (agree or disagree)? Why? @ -I reviewed and agree with nursing and triage notes Were old charts reviewed (outside hosp., previous admission, EMS record, old EKG, old radiological studies, urgent care reports/EKG's, longterm records)? Report findings @ -No old charts were reviewed Differential Diagnosis (chest pain, altered mental status, abdominal pain women, abdominal pain men, vaginal bleeding, weakness, fever, dyspnea, syncope, headache, dizziness, GI bleed, back pain, seizure, CVA, palpatations, mental health, musculoskeletal)? @ -Differential Abdominal Pain Men: Appendicitis, cholecystitis, diverticulosis, ischemic bowel, pancreatitis, hepatitis, UTI, gastroenteritis, AAA, incarcerated hernia, bowel obstruction, constipation, inflammatory bowel, hepatitis, peptic ulcer disease, splenic infarction, perforated viscus, testicular torsion, this is not meant to be an all-inclusive list EKG interpreted by me (3pts min.). @ -None X-rays interpreted by me (1pt min.). @ -None done CT interpreted by me (1pt min.). @ -CT abdomen pelvis showing thickening of the bladder wall, pancreatic cyst. U/S interpreted by me (1pt. min.). @ -None done What testing was considered but not performed or refused? (CT, X-rays, U/S, labs)? Why? @ -None What meds were considered but not given or refused? Why? @ -None Did you discuss the management of the patient with other professionals (professionals i.e. DrTomasa, PA, DATA PROCESSING MANAGER, lab, RT, psych nurse, psychiatric social worker supervisor, visitor services associate, teacher, president and chief executive officer, bilingual patient support caseworker)? Give summary @ -Dr. Cintron for admission Was smoking cessation discussed for >3mins.? @ -No Was critical care preformed (if so, how long)? @ -No Were there social determinants of health that impacted care today? How? (Homelessness, low income, unemployed, alcoholism, drug addiction, transportation, low edu. Level, literacy, decrease access to med. care, residential, rehab)? @ -No Was there de-escalation of care discussed even if they declined (Discuss DNR or withdrawal of care, Hospice)? DNR status @ -No What co-morbidities impacted this encounter? (DM, HTN, Smoking, COPD, CAD, Cancer, CVA, ARF, Chemo, Hep., AIDS, mental health diagnosis, sleep apnea, morbid obesity)? @ -None Was patient admitted / discharged? Hospital course, mention meds given and route, prescriptions, significant lab abnormalities, going to OR and other pertinent info. @ -Admitted patient is having persistent worsening hematuria with increasing weakness found to have UTI sent in by urology secondary to recent procedure. Patient does have significant metabolic acidosis. Patient be kept on maintenance fluids, IV antibiotics and urology evaluation Undiagnosed new problem with uncertain prognosis? @ -No Drug Therapy requiring intensive monitoring for toxicity (Heparin, Nitro, Insulin, Cardizem)? @ -No Were any procedures done? @ -No Diagnosis/symptom? @ -Hematuria, weakness, metabolic acidosis, UTI Acute, or Chronic, or Acute on Chronic? @ -Acute Uncomplicated (without systemic symptoms) or Complicated (systemic symptoms)? @ -Complicated Side effects of treatment? @ -No Exacerbation, Progression, or Severe Exacerbation? @ -No Poses a threat to life or bodily function? How? (Chest pain, USA, LA, pneumonia, PE, COPD, DKA, ARF, appy, cholecystitis, CVA, Diverticulitis, Homicidal, Suicidal, threat to staff... and all critical care pts) @ -No (Richi Fountain) - Lab Data Lab Results 01/02/25 01/02/25 01/02/25 Range/Units 18:25 18:25 18:25 WBC 7.88 (4.50-10.00) 10*3/uL RBC 5.08 (4.40-5.60) 10*6/uL Hgb 13.3 (13.0-17.0) g/dL Hct 41.9 (39.6-50.0) % MCV 82.5 (80.0-97.0) fL MCH 26.2 L (27.0-32.0) pg MCHC 31.7 L (32.0-37.0) g/dL Plt Count 191 (140-440) 10*3/uL MPV 9.8 (9.5-12.2) fL Immature Gran % (Auto) 2.8 % Neutrophils % 49.1 % Lymphocytes % 35.7 % Monocytes % 8.5 % Eosinophils % 3.0 % Basophils % 0.9 % Immature Gran # 0.22 H (0.00-0.04) 10*3/uL Neutrophils # 3.87 (1.80-7.70) 10*3/uL Lymphocytes # 2.81 (0.90-5.00) 10*3/uL Monocytes # 0.67 (0.20-1.00) 10*3/uL Eosinophils # 0.24 (0.04-0.35) 10*3/uL Basophils # 0.07 (0.00-0.10) 10*3/uL PT 12.5 (10.0-12.5) sec INR 1.2 H (<1.2) APTT 27.2 (22.0-30.0) sec Sodium 136 L (137-145) mmol/L Potassium 4.2 (3.5-5.1) mmol/L Chloride 106 (98-107) mmol/L Carbon Dioxide 16 L (22-30) mmol/L Anion Gap 14 mmol/L BUN 43 H (9-20) mg/dL Creatinine 1.63 H (0.66-1.25) mg/dL Est GFR (CKD-EPI)AfAm 43 (>60 ml/min/1.73 sqM) Est GFR (CKD-EPI)NonAf 37 (>60 ml/min/1.73 sqM) Glucose 162 H (74-99) mg/dL Calcium 9.0 (8.4-10.2) mg/dL Total Bilirubin 0.7 (0.2-1.3) mg/dL AST 32 (17-59) U/L ALT 37 (4-49) U/L Alkaline Phosphatase 187 H (38-126) U/L Total Protein 6.2 L (6.3-8.2) g/dL Albumin 3.6 (3.5-5.0) g/dL Urine Color Urine Appearance (Clear) Urine pH (5.0-8.0) Ur Specific [place] (1.001-1.035) Urine Protein (Negative) Urine Glucose (UA) (Negative) Urine Ketones (Negative) Urine Blood (Negative) Urine Nitrite (Negative) Urine Bilirubin (Negative) Urine Urobilinogen (<2.0) mg/dL Ur Leukocyte Esterase (Negative) Urine RBC (0-5) /hpf Urine WBC (0-5) /hpf Urine Bacteria (None) /hpf 01/02/25 Range/Units 19:55 WBC (4.50-10.00) 10*3/uL RBC (4.40-5.60) 10*6/uL Hgb (13.0-17.0) g/dL Hct (39.6-50.0) % MCV (80.0-97.0) fL MCH (27.0-32.0) pg MCHC (32.0-37.0) g/dL Plt Count (140-440) 10*3/uL MPV (9.5-12.2) fL Immature Gran % (Auto) % Neutrophils % % Lymphocytes % % Monocytes % % Eosinophils % % Basophils % % Immature Gran # (0.00-0.04) 10*3/uL Neutrophils # (1.80-7.70) 10*3/uL Lymphocytes # (0.90-5.00) 10*3/uL Monocytes # (0.20-1.00) 10*3/uL Eosinophils # (0.04-0.35) 10*3/uL Basophils # (0.00-0.10) 10*3/uL PT (10.0-12.5) sec INR (<1.2) APTT (22.0-30.0) sec Sodium (137-145) mmol/L Potassium (3.5-5.1) mmol/L Chloride (98-107) mmol/L Carbon Dioxide (22-30) mmol/L Anion Gap mmol/L BUN (9-20) mg/dL Creatinine (0.66-1.25) mg/dL Est GFR (CKD-EPI)AfAm (>60 ml/min/1.73 sqM) Est GFR (CKD-EPI)NonAf (>60 ml/min/1.73 sqM) Glucose (74-99) mg/dL Calcium (8.4-10.2) mg/dL Total Bilirubin (0.2-1.3) mg/dL AST (17-59) U/L ALT (4-49) U/L Alkaline Phosphatase (38-126) U/L Total Protein (6.3-8.2) g/dL Albumin (3.5-5.0) g/dL Urine Color Dark Red Urine Appearance Turbid (Clear) Urine pH 6.0 (5.0-8.0) Ur Specific [place] 1.019 (1.001-1.035) Urine Protein 2+ H (Negative) Urine Glucose (UA) 3+ H (Negative) Urine Ketones Negative (Negative) Urine Blood Large H (Negative) Urine Nitrite Negative (Negative) Urine Bilirubin Negative (Negative) Urine Urobilinogen <2.0 (<2.0) mg/dL Ur Leukocyte Esterase Large H (Negative) Urine RBC >182 H (0-5) /hpf Urine WBC >182 H (0-5) /hpf Urine Bacteria Many H (None) /hpf Disposition Time of Disposition: 23:06 <Richi Fountain - Last Filed: 01/02/25 23:04> <Dinorah Johnson - Last Filed: 01/03/25 05:44> Clinical Impression: Acute UTI, Hematuria, Metabolic acidosis, Weakness, Pancreatic cyst, Mass of left inguinal region Disposition: ADMITTED IP TO THIS HOSP Condition: Fair
[2025-01-02 21:16] LABS: Bacteria,Urine Many /hpf; Bilirubin,Urine Negative (Negative); Blood,Urine Large (Negative); Color,Urine Dark Red; Glucose,Urine (UA) 3+ (Negative); Ketones,Urine Negative (Negative); Leukocyte Esterase,Urine Large (Negative); Nitrite,Urine Negative (Negative); PH, Urine 6.0 (5.0-8.0); Protein,Urine 2+ (Negative); RBC,Urine >182 /hpf (0-5); Specific Gravity,Urine 1.019 (1.001-1.035); Urobilinogen,Urine <2.0 mg/dL (<2.0); WBC,Urine >182 /hpf (0-5)
--- NOTE | 2025-01-02 22:54 | CT ---
EXAMINATION TYPE: CT abdomen pelvis wo con DATE OF EXAM: 01/02/2025 9:40 PM COMPARISON: None. CLINICAL INDICATION: Male, 89 years old with history of hematuria, hematuria.sob with exertion. burni ng urination. suprapubic pain. had tumor from bladder removed in past. TECHNIQUE: Axial images were obtained from above the diaphragm to the pubic rami in the axial plane a t 5 mm thick sections. Reconstructed images are reviewed on the computer in the coronal plane. CONTRAST: mL of . Study performed without Oral Contrast DLP: 647.2 mGycm, Automated exposure control for dose reduction was used. FINDINGS: Limited CT sections are obtained the lung bases. The lung bases are clear. Small hiatal hernia is p resent. CT ABDOMEN: Liver: There are several hypodensities within the liver likely hepatic cysts. Spleen: Normal Pancreas: There is a hypodensity within the posterior tail of the pancreas measuring 1.5 cm in size. This measures 0 Hounsfield units may be a cyst. There are adjacent calcifications present. Cystadenoc arcinoma should also be considered. Additional workup is recommended. Adrenal glands: The adrenal glands are normal. Gallbladder: Surgically absent Kidneys: No masses are evident. No hydronephrosis is present. No cysts are present. No renal stone s are evident. Aorta: Vascular calcification is within the aorta. Inferior vena cava: Normal. CT PELVIS: There is a large left inguinale collection measuring 5.1 cm and 31 Hounsfield units. Aneur ysm could be considered. Pseudoaneurysm could be considered. Ultrasound can be performed for addition al evaluation. Lymphadenopathy is considered less likely. Loops of bowel within the abdomen and pelvis are normal. Scattered diverticuli without adjacent infla mmatory changes to suggest acute diverticulitis. Study is without oral contrast limiting bowel jamialh luation. Appendix: Normal as visualized. Urinary bladder: Some crescentic thickening along the lateral right urinary bladder wall. Lobular thi ckening is not identified. Genitourinary structures: Prostate is prominent. Osseous structures: No suspicious lytic or sclerotic lesions. IMPRESSION: 1. Diffuse thickening from the anterior to the right lateral to the posterior urinary bladder wall i s present. More suspicious lobular thickening is not identified. 2. Cystlike structure at the posterior tail of the pancreas with adjacent calcification. Additional w orkup is recommended. 3. Left inguinal mass with intermediate density. Consider vascular anomaly such as aneurysm or pseudo aneurysm. Lymphadenopathy is considered less likely. Additional workup is recommended. [facility], , 01/02/2025 10:52 PM
[2025-01-02] MEDS ORDERED: ONDANSETRON 4 MG/2 ML VIAL IVP PRN (23:06)
[2025-01-02] MEDS ORDERED: NALOXONE 0.4 MG/ML 1 ML VIAL IV PRN (23:06)
[2025-01-03] MEDS: SODIUM CHLORIDE 0.9% 1,000 ML IV ONE (00:38)
[2025-01-03] MEDS: ACETAMINOPHEN TAB 325 MG TAB PO PRN (05:04)
[2025-01-03] MEDS: SODIUM CHLORIDE 0.9% 1,000 ML IV SCH (06:05)
[2025-01-03 06:29] LABS: Basophils # (A) 0.07 10*3/uL (0.00-0.10); Basophils % (A) 1.0 %; Eosinophils # (A) 0.13 10*3/uL (0.04-0.35); Eosinophils % (A) 1.9 %; HCT 37.4 % (39.6-50.0); HGB 11.7 g/dL (13.0-17.0); Lymphocytes # (A) 1.94 10*3/uL (0.90-5.00); Lymphocytes % (A) 28.5 %; MCH 26.1 pg (27.0-32.0); MCHC 31.3 g/dL (32.0-37.0); MCV 83.3 fL (80.0-97.0); Monocytes # (A) 0.59 10*3/uL (0.20-1.00); Monocytes % (A) 8.7 %; Neutrophils # (A) 3.84 10*3/uL (1.80-7.70); Neutrophils % (A) 56.5 %; Platelet Count 155 10*3/uL (140-440); RBC 4.49 10*6/uL (4.40-5.60); RDW 15.2 % (11.5-14.5); WBC 6.80 10*3/uL (4.50-10.00)
[2025-01-03 06:43] LABS: ALT 27 U/L (4-49); AST 21 U/L (17-59); African American GFR (CKD) 46 (>60 ml/min/1.73 sqM); Albumin 2.9 g/dL (3.5-5.0); Alkaline Phosphatase 133 U/L (38-126); Anion Gap 11 mmol/L; Blood Urea Nitrogen 37 mg/dL (9-20); Calcium 8.2 mg/dL (8.4-10.2); Carbon Dioxide 15 mmol/L (22-30); Chloride 111 mmol/L (98-107); Glucose 129 mg/dL (74-99); Non-African American GFR(CKD) 40 (>60 ml/min/1.73 sqM); Potassium 4.0 mmol/L (3.5-5.1); Sodium 137 mmol/L (137-145); Total Protein 5.2 g/dL (6.3-8.2)
[2025-01-03 07:37] LABS: Glucose,Whole Blood 116 mg/dL (70-110)
[2025-01-03 12:47] LABS: Glucose,Whole Blood 106 mg/dL (70-110)
[2025-01-03] MEDS: TAMSULOSIN 0.4 MG CAP.ER.24H PO SCH (13:22)
[2025-01-03] MEDS: METOPROLOL TARTRATE 25 MG TAB PO SCH (13:23)
--- NOTE | 2025-01-03 16:51 | P.HPIM ---
History of Present Illness H&P Date: 01/03/25 Chief Complaint: Hematuria Very pleasant 89-year-old patient who follows with previously Dr. Sushant Mensah Chronic medical condition include atrial fibrillation, diabetes, hyperlipidemia, hypertension, previous VT, prostate disorder, gout, CAD with stent. Patient does take Eliquis for the atrial fibrillation. In October 2024 patient had a bladder tumor removed by Dr Chino. Following that patient's had urine infections and has been on antibiotics off-and-on. Patient does have urinary urgency and gets up [place] at night. Also sometimes has dysuria. Has had hematuria On this occasion 2 days ago patient started having hematuria. Fullness of the bladder. Did pass blood clots. Denies any fever and chills. Patient's daughter at the bedside. Review of systems: GEN.: Tired EYES: None HEENT: [Decreased hearing NECK: None RESPIRATORY: None CARDIOVASCULAR: None GASTROINTESTINAL: None GENITOURINARY: As above MUSCULOSKELETAL: Pains joints LYMPHATICS: None HEMATOLOGICAL: None PSYCHIATRY: None NEUROLOGICAL: Does use a cane and a walker Social history: New senior apartment independent living. Sometimes use a cane and a walker. Alcohol occasionally. No other significant history of smoking Physical examination: VITAL SIGNS: 97.6, 93, 20, 144 x 73, 96% room air GENERAL: [, BMI 25.1 reclining in bed awake tired. EYES: Pupils equal. Conjunctiva ialeen l. HEENT: External appearance of nose and ears normal, oral cavity grossly normal. Diminished hearing NECK: JVD not raised; masses not palpable. HEART: First and second heart sounds are normal; no edema. LUNGS: Respiratory rate normal; clear to auscultation. ABDOMEN: Soft, nontender, liver spleen not palpable, no masses palpable. PSYCH: Alert and oriented x3; mood and affect bit anxious l. MUSCULOSKELETAL:No Clubbing/cyanosis;muscles-grossly intact. 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 LYMPHATICS: No lymph nodes palpable in the axilla and neck INVESTIGATIONS, reviewed in the clinical context: January 03, 2025: White count 6.8 hemoglobin 11.7 platelets sodium 137 potassium 4 BUN 37 creatinine 1.55 bicarb 15 albumin 2.9 UA: Protein 2+ glucose 3+ leukoesterase large WBC WBC 180 CT abdomen pelvis: Diffuse thickening from the anterior to the right lateral to the posterior urinary bladder wall is present both. Left inguinal mass with indeterminate density. There are tail of the pancreas 1.5 cm. Findings suggestive of hepatic cyst. Assessment and plan: - Acute on chronic blood clots and the patient underwent tumor cancers removed in October [address] Chino. Patient also had a few bouts of UTI with antibiotics.: Hematuria Presents now again with hematuria blood clots, dysuria. Frequency. Urgency. Also precipitated by being on Eliquis.hold. Also hold Plavix IV ceftriaxone. Urine culture pending. 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 Diagnosed October 2024 Follow-up with urologist Dr. Chino - Acute recurrent UTI with recent instrumentation and tumor IV ceftriaxone -Atrial fibrillation Eliquis on hold because of bleeding. -Hyperlipidemia Lipitor 20 mg nightly - BPH Proscar 5 mg nightly Flomax 0.4 mg twice daily - CAD with stent Patient is on Plavix. Hold for now. Because of bleeding. Lipitor. Lopressor. - Essential hypertension Lopressor - Diabetes mellitus type 2, on oral hypoglycemic Jardiance. Glimepiride hold for now. 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 Diabetics. Home medication resumed. Follow H&H. Hold off Eliquis and Plavix. Today's prognosis guarded. Past Medical History Past Medical History: Atrial Fibrillation, Cancer, Diabetes Mellitus, Deep Vein Thrombosis (DVT), Hyperlipidemia, Hypertension, Myocardial Infarction (VT), Prostate Disorder, Skin Disorder Additional Past Medical History / Comment(s): gout, bloody urine, lft leg dvt, skin cancer, gets "shot once a month for skin sores" (bellous pempthygoid) Last Myocardial Infarction Date:: 2022 History of Any Multi-Drug Resistant Organisms: None Reported Past Surgical History: Bladder Surgery, Cholecystectomy, Heart Catheterization With Stent Additional Past Surgical History / Comment(s): repaired ulcer, bladder tumor removed 11/19 Past Anesthesia/Blood Transfusion Reactions: No Reported Reaction Date of Last Stent Placement:: 2022 Past Psychological History: Anxiety Smoking Status: Former smoker Past Alcohol Use History: Occasional Additional Past Alcohol Use History / Comment(s): quit 1961 Past Drug Use History: None Reported Medications and Allergies Home Medications Medication Instructions Recorded Confirmed Type Apixaban [Eliquis] 5 mg PO BID 10/24/24 01/03/25 History Atorvastatin [Lipitor] 20 mg PO HS 10/24/24 01/03/25 History Cetirizine HCl 10 mg PO DAILY 10/24/24 01/03/25 History Clopidogrel [Plavix] 75 mg PO DAILY 10/24/24 01/03/25 History Empagliflozin [Jardiance] 25 mg PO DAILY 10/24/24 01/03/25 History Finasteride [Proscar] 5 mg PO HS 10/24/24 01/03/25 History Glimepiride 4 mg PO BID 10/24/24 01/03/25 History Metoprolol Tartrate [Lopressor] 25 mg PO BID 10/24/24 01/03/25 History Tamsulosin [Flomax] 0.4 mg PO BID 10/24/24 01/03/25 History hydrOXYzine HCL [Hydroxyzine HCl] 10 mg PO HS 10/24/24 01/03/25 History Losartan [Cozaar] 25 mg PO DAILY 11/03/24 01/03/25 History Pantoprazole [Protonix] 40 mg PO DAILY 11/03/24 01/03/25 History Semaglutide [Ozempic] 1 mg SQ SA 11/03/24 01/03/25 History Allergies Allergy/AdvReac Type Severity Reaction Status Date / Time steroids Allergy Mild Swelling Uncoded 11/03/24 17:04 Physical Exam Vitals: Vital Signs Temp Pulse Pulse Resp BP BP Pulse Ox 01/03/25 07:36 97.6 F 93 20 144/73 96 01/03/25 07:12 92 18 139/79 98 01/03/25 05:09 92 18 139/79 98 01/03/25 02:56 101 H 20 132/98 99 01/02/25 18:09 97.4 F L 60 20 135/85 96 Intake and Output 01/02/25 01/03/25 01/03/25 22:59 06:59 14:59 Other: Voiding Method Urinal Weight 77.111 kg 77.111 kg Results CBC & Chem 7: 01/03/25 05:57 01/03/25 05:57 Labs: Abnormal Lab Results - Last 24 Hours (Table) 01/02/25 01/02/25 01/02/25 Range/Units 18:25 18:25 18:25 Hgb (13.0-17.0) g/dL Hct (39.6-50.0) % MCH 26.2 L (27.0-32.0) pg MCHC 31.7 L (32.0-37.0) g/dL Immature Gran # 0.22 H (0.00-0.04) 10*3/uL INR 1.2 H (<1.2) Sodium 136 L (137-145) mmol/L Chloride (98-107) mmol/L Carbon Dioxide 16 L (22-30) mmol/L BUN 43 H (9-20) mg/dL Creatinine 1.63 H (0.66-1.25) mg/dL Glucose 162 H (74-99) mg/dL POC Glucose (mg/dL) (70-110) mg/dL Calcium (8.4-10.2) mg/dL Alkaline Phosphatase 187 H (38-126) U/L Total Protein 6.2 L (6.3-8.2) g/dL Albumin (3.5-5.0) g/dL Urine Protein (Negative) Urine Glucose (UA) (Negative) Urine Blood (Negative) Ur Leukocyte Esterase (Negative) Urine RBC (0-5) /hpf Urine WBC (0-5) /hpf Urine Bacteria (None) /hpf 01/02/25 01/03/25 01/03/25 Range/Units 19:55 05:57 05:57 Hgb 11.7 L (13.0-17.0) g/dL Hct 37.4 L (39.6-50.0) % MCH 26.1 L (27.0-32.0) pg MCHC 31.3 L (32.0-37.0) g/dL Immature Gran # 0.23 H (0.00-0.04) 10*3/uL INR (<1.2) Sodium (137-145) mmol/L Chloride 111 H (98-107) mmol/L Carbon Dioxide 15 L (22-30) mmol/L BUN 37 H (9-20) mg/dL Creatinine 1.55 H (0.66-1.25) mg/dL Glucose 129 H (74-99) mg/dL POC Glucose (mg/dL) (70-110) mg/dL Calcium 8.2 L (8.4-10.2) mg/dL Alkaline Phosphatase 133 H (38-126) U/L Total Protein 5.2 L (6.3-8.2) g/dL Albumin 2.9 L (3.5-5.0) g/dL Urine Protein 2+ H (Negative) Urine Glucose (UA) 3+ H (Negative) Urine Blood Large H (Negative) Ur Leukocyte Esterase Large H (Negative) Urine RBC >182 H (0-5) /hpf Urine WBC >182 H (0-5) /hpf Urine Bacteria Many H (None) /hpf 01/03/25 Range/Units 07:36 Hgb (13.0-17.0) g/dL Hct (39.6-50.0) % MCH (27.0-32.0) pg MCHC (32.0-37.0) g/dL Immature Gran # (0.00-0.04) 10*3/uL INR (<1.2) Sodium (137-145) mmol/L Chloride (98-107) mmol/L Carbon Dioxide (22-30) mmol/L BUN (9-20) mg/dL Creatinine (0.66-1.25) mg/dL Glucose (74-99) mg/dL POC Glucose (mg/dL) 116 H (70-110) mg/dL Calcium (8.4-10.2) mg/dL Alkaline Phosphatase (38-126) U/L Total Protein (6.3-8.2) g/dL Albumin (3.5-5.0) g/dL Urine Protein (Negative) Urine Glucose (UA) (Negative) Urine Blood (Negative) Ur Leukocyte Esterase (Negative) Urine RBC (0-5) /hpf Urine WBC (0-5) /hpf Urine Bacteria (None) /hpf Thrombosis Risk Factor Assmnt - Choose All That Apply Any of the Below Risk Factors Present?: Yes Other Risk Factors: Yes Each Risk Factor Represents 3 Points: History of DVT/PE Other congenital or acquired thrombophilia - If yes, enter type in comment: No Thrombosis Risk Factor Assessment Total Risk Factor Score: 3 Thrombosis Risk Factor Assessment Level: Moderate Risk
--- NOTE | 2025-01-03 16:58 | P.GSCN ---
History of Present Illness Consult date: 01/03/25 Reason for Consult: Hematuria, possible UTI Requesting physician: Melvin Cintron History of present illness: The patient is an 89-year-old white male who underwent removal of a bladder calculus on October 26, [address] Chino. 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 Urine culture on December 20 showed a Proteus UTI, and he was treated with antibiotics. However, he has experienced recurrent dysuria along with hematuria and presented to the ER. He was subsequently admitted and is receiving IV antibiotics. His urine is currently dark red without clots, though he states he did pass some small clots yesterday. He reports persistent suprapubic/penile burning. Review of Systems - Constitutional Denies chills, Denies fever - Genitourinary Reports dysuria, Reports hematuria, Denies flank pain Past Medical History Past Medical History: Atrial Fibrillation, Cancer, Diabetes Mellitus, Deep Vein Thrombosis (DVT), Hyperlipidemia, Hypertension, Prostate Disorder, Skin Disorder Additional Past Medical History / Comment(s): gout, bloody urine, lft leg dvt, skin cancer, gets "shot once a month for skin sores" frquent urination History of Any Multi-Drug Resistant Organisms: None Reported Past Surgical History: Cholecystectomy, Heart Catheterization With Stent Additional Past Surgical History / Comment(s): repaired ulcer, bladder tumor removed 11/19 Past Anesthesia/Blood Transfusion Reactions: No Reported Reaction Date of Last Stent Placement:: unk Past Psychological History: Anxiety Smoking Status: Former smoker Medications and Allergies Home Medications Medication Instructions Recorded Confirmed Type Apixaban [Eliquis] 5 mg PO BID 10/24/24 01/03/25 History Atorvastatin [Lipitor] 20 mg PO HS 10/24/24 01/03/25 History Cetirizine HCl 10 mg PO DAILY 10/24/24 01/03/25 History Clopidogrel [Plavix] 75 mg PO DAILY 10/24/24 01/03/25 History Empagliflozin [Jardiance] 25 mg PO DAILY 10/24/24 01/03/25 History Finasteride [Proscar] 5 mg PO HS 10/24/24 01/03/25 History Glimepiride 4 mg PO BID 10/24/24 01/03/25 History Metoprolol Tartrate [Lopressor] 25 mg PO BID 10/24/24 01/03/25 History Tamsulosin [Flomax] 0.4 mg PO BID 10/24/24 01/03/25 History hydrOXYzine HCL [Hydroxyzine HCl] 10 mg PO HS 10/24/24 01/03/25 History Losartan [Cozaar] 25 mg PO DAILY 11/03/24 01/03/25 History Pantoprazole [Protonix] 40 mg PO DAILY 11/03/24 01/03/25 History Semaglutide [Ozempic] 1 mg SQ SA 11/03/24 01/03/25 History Allergies Allergy/AdvReac Type Severity Reaction Status Date / Time steroids Allergy Mild Swelling Uncoded 11/03/24 17:04 Surgical - Exam Vital Signs Temp Pulse Resp BP Pulse Ox 97.4 F L 60 20 135/85 96 01/02/25 18:09 01/02/25 18:09 01/02/25 18:09 01/02/25 18:09 01/02/25 18:09 - General well developed, well nourished, no distress - Respiratory normal respiratory effort - Abdomen Soft, non-distended, no mass. Mild suprapubic tenderness, no guarding or rebound. - Psychiatric oriented to time, oriented to person, oriented to place, speech is normal, memory intact Results - Labs 01/03/25 05:57 01/03/25 05:57 Abnormal Lab Results - Last 24 Hours (Table) 01/02/25 01/02/25 01/02/25 Range/Units 18:25 18: 18: MCH 26.2 L (27.0-32.0) pg MCHC 31.7 L (32.0-37.0) g/dL Immature Gran # 0.22 H (0.00-0.04) 10*3/uL INR 1.2 H (<1.2) Sodium 136 L (137-145) mmol/L Carbon Dioxide 16 L (22-30) mmol/L BUN 43 H (9-20) mg/dL Creatinine 1.63 H (0.66-1.25) mg/dL Glucose 162 H (74-99) mg/dL Alkaline Phosphatase 187 H (38-126) U/L Total Protein 6.2 L (6.3-8.2) g/dL Urine Protein (Negative) Urine Glucose (UA) (Negative) Urine Blood (Negative) Ur Leukocyte Esterase (Negative) Urine RBC (0-5) /hpf Urine WBC (0-5) /hpf Urine Bacteria (None) /hpf 01/02/25 Range/Units 19:55 MCH (27.0-32.0) pg MCHC (32.0-37.0) g/dL Immature Gran # (0.00-0.04) 10*3/uL INR (<1.2) Sodium (137-145) mmol/L Carbon Dioxide (22-30) mmol/L BUN (9-20) mg/dL Creatinine (0.66-1.25) mg/dL Glucose (74-99) mg/dL Alkaline Phosphatase (38-126) U/L Total Protein (6.3-8.2) g/dL Urine Protein 2+ H (Negative) Urine Glucose (UA) 3+ H (Negative) Urine Blood Large H (Negative) Ur Leukocyte Esterase Large H (Negative) Urine RBC >182 H (0-5) /hpf Urine WBC >182 H (0-5) /hpf Urine Bacteria Many H (None) /hpf Diabetes panel 01/02/25 Range/Units 18:25 Sodium 136 L (137-145) mmol/L Potassium 4.2 (3.5-5.1) mmol/L Chloride 106 (98-107) mmol/L Carbon Dioxide 16 L (22-30) mmol/L BUN 43 H (9-20) mg/dL Creatinine 1.63 H (0.66-1.25) mg/dL Glucose 162 H (74-99) mg/dL Calcium 9.0 (8.4-10.2) mg/dL AST 32 (17-59) U/L ALT 37 (4-49) U/L Alkaline Phosphatase 187 H (38-126) U/L Total Protein 6.2 L (6.3-8.2) g/dL Albumin 3.6 (3.5-5.0) g/dL Calcium panel 01/02/25 Range/Units 18:25 Calcium 9.0 (8.4-10.2) mg/dL Albumin 3.6 (3.5-5.0) g/dL Pituitary panel 01/02/25 Range/Units 18:25 Sodium 136 L (137-145) mmol/L Potassium 4.2 (3.5-5.1) mmol/L Chloride 106 (98-107) mmol/L Carbon Dioxide 16 L (22-30) mmol/L BUN 43 H (9-20) mg/dL Creatinine 1.63 H (0.66-1.25) mg/dL Glucose 162 H (74-99) mg/dL Calcium 9.0 (8.4-10.2) mg/dL Adrenal panel 01/02/25 Range/Units 18:25 Sodium 136 L (137-145) mmol/L Potassium 4.2 (3.5-5.1) mmol/L Chloride 106 (98-107) mmol/L Carbon Dioxide 16 L (22-30) mmol/L BUN 43 H (9-20) mg/dL Creatinine 1.63 H (0.66-1.25) mg/dL Glucose 162 H (74-99) mg/dL Calcium 9.0 (8.4-10.2) mg/dL Total Bilirubin 0.7 (0.2-1.3) mg/dL AST 32 (17-59) U/L ALT 37 (4-49) U/L Alkaline Phosphatase 187 H (38-126) U/L Total Protein 6.2 L (6.3-8.2) g/dL Albumin 3.6 (3.5-5.0) g/dL - Imaging CT scan - abdomen: report reviewed, image reviewed Assessment and Plan (1) Malignant neoplasm of bladder, unspecified Current Visit: Yes Status: Acute Code(s): C67.9 - MALIGNANT NEOPLASM OF BLADDER, UNSPECIFIED SNOMED Code(s): 856412434 (2) Acute UTI Current Visit: Yes Status: Acute Code(s): N39.0 - URINARY TRACT INFECTION, SITE NOT SPECIFIED SNOMED Code(s): 192022040 Plan: It is unclear at this time whether the hematuria is due to a UTI or recurrent bladder cancer. A urine culture was sent, and the patient is receiving ceftriaxone. It would be my recommendation that he continue to be treated with IV antibiotics, pending the final urine culture result. If the urine culture is negative, he may require cystoscopy with fulguration of bleeders and possible recurrent bladder tumor resection. Time with Patient: Greater than 30
[2025-01-03] MEDS: PANTOPRAZOLE 40 MG TABLET PO SCH (17:02)
[2025-01-03] MEDS: DAPAGLIFLOZIN PROPANEDIOL 10 MG TABLET PO SCH (17:02)
[2025-01-03 17:18] LABS: Glucose,Whole Blood 85 mg/dL (70-110)
[2025-01-03] MEDS: ATORVASTATIN 20 MG TAB PO SCH (19:55)
[2025-01-03] MEDS: hydrOXYzine HCL 10 MG TAB PO SCH (19:56)
[2025-01-03] MEDS: FINASTERIDE 5 MG TAB PO SCH (19:56)
[2025-01-03 20:28] LABS: Glucose,Whole Blood 150 mg/dL (70-110)
[2025-01-04 07:34] LABS: Glucose,Whole Blood 123 mg/dL (70-110)
[2025-01-04 12:14] LABS: Glucose,Whole Blood 163 mg/dL (70-110)
--- NOTE | 2025-01-04 12:36 | P.PN ---
Subjective Progress Note Date: 01/04/25 Principal diagnosis: Dysuria and hematuria The patient continues to experience bladder discomfort and hematuria. His urine culture was negative. Objective - Vital Signs Vital signs: Vital Signs Temp 97.7 F 01/04/25 07:53 Pulse 61 01/04/25 07:53 Resp 20 01/04/25 08:00 BP 134/60 01/04/25 07:53 Pulse Ox 99 01/04/25 07:53 FiO2 Intake & Output 01/03/25 01/04/25 01/04/25 18:59 06:59 18:59 Intake Total 580 Output Total 550 500 806 Balance 30 -500 -806 Weight 77.111 kg Intake: Oral 580 Output: Urine 550 500 450 Post Void Residual 356 Other: Voiding Method Urinal Urinal Urinal # Bowel Movements 2 - Constitutional General appearance: Present: average body habitus, cooperative, no acute distress - Psychiatric Psychiatric: Present: A&O x's 3 - Labs CBC & Chem 7: 01/03/25 05:57 01/03/25 05:57 Labs: Abnormal Lab Results - Last 24 Hours (Table) 01/03/25 01/04/25 01/04/25 Range/Units 20:24 07:28 11:56 POC Glucose (mg/dL) 150 H 123 H 163 H (70-110) mg/dL Microbiology - Last 24 Hours (Table) 01/02/25 19:55 Urine Culture - Final Urine,Voided Assessment and Plan (1) Malignant neoplasm of bladder, unspecified Current Visit: Yes Status: Acute Code(s): C67.9 - MALIGNANT NEOPLASM OF BLADDER, UNSPECIFIED SNOMED Code(s): 615470694 (2) Acute UTI Current Visit: Yes Status: Acute Code(s): N39.0 - URINARY TRACT INFECTION, SITE NOT SPECIFIED SNOMED Code(s): 220027115 Plan: Given the patient's persistent symptoms and negative urine culture, I have recommended that he undergo cystoscopy, evacuation of clot, fulguration of bleeders, and possible bladder tumor resection later today. I have made the patient and his daughter aware of potential risks, which include anesthesia, persistent hematuria, and bladder perforation.
[2025-01-04 17:45] LABS: Glucose,Whole Blood 95 mg/dL (70-110)
[2025-01-04] MEDS ORDERED: NEOSTIGMINE 1 MG/ML 10 ML VIAL ONE (19:35)
[2025-01-04] MEDS ORDERED: fentaNYL (PF) 50 MCG/ML 2 ML AMP ONE (19:35)
[2025-01-04] MEDS ORDERED: ROCURONIUM 10 MG/ML (5 ML VIAL) IV ONE (19:35)
[2025-01-04] MEDS ORDERED: GLYCOPYRROLATE 0.2 MG/ML 2 ML VIAL ONE (19:35)
[2025-01-04] MEDS ORDERED: LIDOCAINE 1% INJ 10MG/ML (20 ML MDV) ONE (19:35)
[2025-01-04] MEDS ORDERED: SUCCINYLCHOLINE CHLORIDE 200 MG/10 ML VIAL IV ONE (19:35)
[2025-01-04] MEDS ORDERED: ETOMIDATE 2 MG/ML 10 ML VIAL ONE (19:35)
[2025-01-04] MEDS: SODIUM CHLORIDE 0.9% 1,000 ML IV ONE (19:40)
--- NOTE | 2025-01-04 19:52 | P.PN ---
Progress Note - Text Progress Note Date: 01/04/25 Chief Complaint: Hematuria Very pleasant 89-year-old patient who follows with previously Dr. Sushant Mensah Chronic medical condition include atrial fibrillation, diabetes, hyperlipidemia, hypertension, previous ND, prostate disorder, gout, CAD with stent. Patient does take Eliquis for the atrial fibrillation. In October 2024 patient had a bladder tumor removed by Dr Chino. Following that patient's had urine infections and has been on antibiotics off-and-on. Patient does have urinary urgency and gets up Feudo at night. Also sometimes has dysuria. Has had hematuria On this occasion 2 days ago patient started having hematuria. Fullness of the bladder. Did pass blood clots. Denies any fever and chills. Patient's daughter at the bedside. January 04: Saw the patient this morning. Remains rather troubled because of hematuria and blood clots. And also dysuria and pelvic pain. I did speak to Dr Montejo this morning. He plans to take the patient to the OR this afternoon. For cystoscopy. I did speak to patient's daughter this afternoon. Remains on IV fluids IV ceftriaxone.. Active Medications Acetaminophen (Acetaminophen Tab 325 Mg Tab) 650 mg PO Q6HR PRN PRN Reason: Mild Pain or Fever > 100.5 Last Admin: 01/04/25 09:11 Dose: 650 mg Atorvastatin Calcium (Atorvastatin 20 Mg Tab) 20 mg PO HS [facility] Last Admin: 01/03/25 19:55 Dose: 20 mg Dapagliflozin (Dapagliflozin Propanediol 10 Mg Tablet) 10 mg PO DAILY [facility] Last Admin: 01/04/25 09:03 Dose: 10 mg Finasteride (Finasteride 5 Mg Tab) 5 mg PO HS [facility] Last Admin: 01/03/25 19:56 Dose: 5 mg Hydroxyzine HCl (Hydroxyzine Hcl 10 Mg Tab) 10 mg PO HS [facility] Last Admin: 01/03/25 19:56 Dose: 10 mg Sodium Chloride (Saline 0.9%) 1,000 mls @ 75 mls/hr IV .[id number] [facility] Last Admin: 01/04/25 09:02 Dose: 75 mls/hr Ceftriaxone Sodium 1 gm/ (Sodium Chloride) 50 mls @ 100 mls/hr IVPB Q24H [facility]; Protocol Last Admin: 01/03/25 19:54 Dose: 100 mls/hr Metoprolol Tartrate (Metoprolol Tartrate 25 Mg Tab) 25 mg PO BID [facility] Last Admin: 01/04/25 09:03 Dose: 25 mg Naloxone HCl (Naloxone 0.4 Mg/Ml 1 Ml Vial) 0.2 mg IV Q2M PRN PRN Reason: Opioid Reversal Ondansetron HCl (Ondansetron 4 Mg/2 Ml Vial) 4 mg IVP Q8HR PRN PRN Reason: Nausea And Vomiting Pantoprazole Sodium (Pantoprazole 40 Mg Tablet) 40 mg PO DAILY [facility] Last Admin: 01/04/25 09:03 Dose: 40 mg Tamsulosin HCl (Tamsulosin 0.4 Mg Cap.Er.24h) 0.4 mg PO BID [facility] Last Admin: 01/04/25 09:03 Dose: 0.4 mg Social history: New senior apartment independent living. Sometimes use a cane and a walker. Alcohol occasionally. No other significant history of smoking Physical examination: VITAL SIGNS: 97.8, 64, 17, 111 x 61, 100% room air GENERAL: [, BMI 25.1 reclining in bed awake tired. EYES: Pupils equal. Conjunctiva aileen l. HEENT: External appearance of nose and ears normal, oral cavity grossly normal. Diminished hearing NECK: JVD not raised; masses not palpable. HEART: First and second heart sounds are normal; no edema. LUNGS: Respiratory rate normal; clear to auscultation. ABDOMEN: Soft, nontender, liver spleen not palpable, no masses palpable. PSYCH: Alert and oriented x3; mood and affect bit anxious l. MUSCULOSKELETAL:No Clubbing/cyanosis;muscles-grossly intact. 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 Left inguinal mass with indeterminate density. There are tail of the pancreas 1.5 cm. Findings suggestive of hepatic cyst. Assessment and plan: - Acute on chronic blood clots and the patient underwent tumor cancers removed in October [address] Chino. Patient also had a few bouts of UTI with antibiotics.: Hematuria: Not improving Presents now again with hematuria blood clots, dysuria. Frequency. Urgency. Also precipitated by being on Eliquis.hold. Also hold Plavix IV ceftriaxone. Urine culture pending. Dr. Montejo from urology following: For cystoscopy later today. 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 Diagnosed October 2024 Follow-up with urologist Dr. Chino - Acute recurrent UTI with recent instrumentation and tumor IV ceftriaxone -Atrial fibrillation Eliquis on hold because of bleeding. 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 Hold for now. Because of bleeding. Lipitor. Lopressor. - Essential hypertension Lopressor - Diabetes mellitus type 2, on oral hypoglycemic Jardiance. Glimepiride hold for now. 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 Montejo. Will start the patient on sodium bicarbonate drip. Discussed with the daughter because of recurrent bleeding patient not a candidate for Eliquis anymore. Not for any antiplatelet agents. She understands the risk of not taking the same. Past Medical History Past Medical History: Atrial Fibrillation, Cancer, Diabetes Mellitus, Deep Vein Thrombosis (DVT), Hyperlipidemia, Hypertension, Myocardial Infarction (ND), Prostate Disorder, Skin Disorder Additional Past Medical History / Comment(s): gout, bloody urine, lft leg dvt, skin cancer, gets "shot once a month for skin sores" (bellous pempthygoid) Last Myocardial Infarction Date:: 2022 History of Any Multi-Drug Resistant Organisms: None Reported Past Surgical History: Bladder Surgery, Cholecystectomy, Heart Catheterization With Stent Additional Past Surgical History / Comment(s): repaired ulcer, bladder tumor removed 11/19 Past Anesthesia/Blood Transfusion Reactions: No Reported Reaction Date of Last Stent Placement:: 2022 Past Psychological History: Anxiety Smoking Status: Former smoker Past Alcohol Use History: Occasional Additional Past Alcohol Use History / Comment(s): quit 1961 Past Drug Use History: None Reported
--- NOTE | 2025-01-04 20:43 | P.OP ---
Date of Procedure: 01/04/25 Preoperative Diagnosis: Gross hematuria Postoperative Diagnosis: Same Procedure(s) Performed: Cystoscopy, evacuation of clots, fulguration of bleeders Anesthesia: CHARLIE Surgeon: Luis Felipe Montejo Estimated Blood Loss (ml): 30 IV fluids (ml): 300 Pathology: none sent Condition: stable Disposition: PACU Indications for Procedure: The patient is an 89-year-old white male who underwent removal of a bladder calculus on October 26, [address] Chino. 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 Urine culture on December 20 showed a Proteus UTI, and he was treated with antibiotics. However, he has experienced recurrent dysuria along with hematuria and presented to the ER. He was subsequently admitted and is receiving IV antibiotics. His urine is currently dark red without clots, though he states he has passed some small clots. He reports persistent suprapubic/penile burning. Urine culture is negative. Operative Findings: Several clots were removed from the bladder. Several areas of bruising are noted and are controlled with electrocautery. No tumors seen. Description of Procedure: The patient was taken to the operating room and placed in the dorsolithotomy position, with legs supported in Abel stirrups. The external genitalia was prepped and draped sterilely. The 30 lens was used to introduce the 22-Irish Stortz cystoscopic sheath through the urethra and into the bladder under direct vision. The prostatic urethra showed evidence of lateral lobe enlargement. The bladder was examined in its entirety. Considerable blood was noted within the bladder, which was removed via irrigation. Some clots were removed. The ureteral orifices could not be identified. No tumors or foreign bodies were seen. Several areas of oozing were noted, at the bladder dome, posterior bladder wall midline, and prostatic urethra. Clot was adherent to the area of oozing on the posterior bladder wall. The Bugbee electrode was used to fulgurate each of these areas, attaining adequate hemostasis. The cystoscope was removed, and a 20 Irish Mathews catheter was placed. The return was faintly pink-tinged. The patient tolerated the procedure well and was taken to the recovery room in stable condition.
[2025-01-04 21:48] LABS: Glucose,Whole Blood 127 mg/dL (70-110)
[2025-01-04] MEDS: DEXTROSE 5% IN WATER 1,000 ML with SODIUM BICARB (1 MEQ/ML) 50 ML IV SCH (23:12)
[2025-01-05 06:48] LABS: Basophils # (A) 0.06 10*3/uL (0.00-0.10); Basophils % (A) 0.7 %; Eosinophils # (A) 0.19 10*3/uL (0.04-0.35); Eosinophils % (A) 2.3 %; HCT 36.0 % (39.6-50.0); HGB 11.2 g/dL (13.0-17.0); Lymphocytes # (A) 1.83 10*3/uL (0.90-5.00); Lymphocytes % (A) 22.4 %; MCH 26.6 pg (27.0-32.0); MCHC 31.1 g/dL (32.0-37.0); MCV 85.5 fL (80.0-97.0); Monocytes # (A) 0.70 10*3/uL (0.20-1.00); Monocytes % (A) 8.6 %; Neutrophils # (A) 5.23 10*3/uL (1.80-7.70); Neutrophils % (A) 64.2 %; Platelet Count 142 10*3/uL (140-440); RBC 4.21 10*6/uL (4.40-5.60); RDW 15.7 % (11.5-14.5); WBC 8.16 10*3/uL (4.50-10.00)
[2025-01-05 07:03] LABS: Glucose,Whole Blood 133 mg/dL (70-110)
[2025-01-05 07:03] LABS: African American GFR (CKD) 63 (>60 ml/min/1.73 sqM); Anion Gap 9 mmol/L; Blood Urea Nitrogen 20 mg/dL (9-20); Calcium 8.7 mg/dL (8.4-10.2); Carbon Dioxide 16 mmol/L (22-30); Chloride 111 mmol/L (98-107); Glucose 139 mg/dL (74-99); Non-African American GFR(CKD) 54 (>60 ml/min/1.73 sqM); Potassium 4.1 mmol/L (3.5-5.1); Sodium 136 mmol/L (137-145)
[2025-01-05 12:18] LABS: Glucose,Whole Blood 209 mg/dL (70-110)
[2025-01-05 17:06] LABS: Glucose,Whole Blood 202 mg/dL (70-110)
--- NOTE | 2025-01-05 18:34 | P.PN ---
Progress Note - Text Progress Note Date: 01/05/25 Chief Complaint: Hematuria Very pleasant 89-year-old patient who follows with previously Dr. Sushant Mensah Chronic medical condition include atrial fibrillation, diabetes, hyperlipidemia, hypertension, previous [place], prostate disorder, gout, CAD with stent. Patient does take Eliquis for the atrial fibrillation. In October 2024 patient had a bladder tumor removed by Dr Chino. Following that patient's had urine infections and has been on antibiotics off-and-on. Patient does have urinary urgency and gets up Feudo at night. Also sometimes has dysuria. Has had hematuria On this occasion 2 days ago patient started having hematuria. Fullness of the bladder. Did pass blood clots. Denies any fever and chills. Patient's daughter at the bedside. January 04: Saw the patient this morning. Remains rather troubled because of hematuria and blood clots. And also dysuria and pelvic pain. I did speak to Dr Montejo this morning. He plans to take the patient to the OR this afternoon. For cystoscopy. I did speak to patient's daughter this afternoon. Remains on IV fluids IV ceftriaxone.. January 05: Patient underwent cystoscopy by Dr. Montejo. Cauterization was carried out. Hematuria greatly improved. Patient feels much better. Mathews catheter in place. Feeling better. Hemoglobin 11.2 Active Medications Acetaminophen (Acetaminophen Tab 325 Mg Tab) 650 mg PO Q6HR PRN PRN Reason: Mild Pain or Fever > 100.5 Last Admin: 01/05/25 09:19 Dose: 650 mg Atorvastatin Calcium (Atorvastatin 20 Mg Tab) 20 mg PO HS [facility] Last Admin: 01/04/25 22:53 Dose: 20 mg Dapagliflozin (Dapagliflozin Propanediol 10 Mg Tablet) 10 mg PO DAILY [facility] Last Admin: 01/05/25 09:13 Dose: 10 mg Finasteride (Finasteride 5 Mg Tab) 5 mg PO HS [facility] Last Admin: 01/04/25 22:53 Dose: 5 mg Hydroxyzine HCl (Hydroxyzine Hcl 10 Mg Tab) 10 mg PO HS [facility] Last Admin: 01/04/25 22:53 Dose: 10 mg Ceftriaxone Sodium 1 gm/ (Sodium Chloride) 50 mls @ 100 mls/hr IVPB Q24H [facility]; Protocol Last Admin: 01/04/25 19:59 Dose: 50 mls Sodium Bicarbonate 50 ml/ (Dextrose/Water) 1,050 mls @ 100 mls/hr IV .[id number] [facility] Last Admin: 01/05/25 17:38 Dose: 100 mls/hr Metoprolol Tartrate (Metoprolol Tartrate 25 Mg Tab) 25 mg PO BID [facility] Last Admin: 01/05/25 09:14 Dose: 25 mg Naloxone HCl (Naloxone 0.4 Mg/Ml 1 Ml Vial) 0.2 mg IV Q2M PRN PRN Reason: Opioid Reversal Ondansetron HCl (Ondansetron 4 Mg/2 Ml Vial) 4 mg IVP Q8HR PRN PRN Reason: Nausea And Vomiting Pantoprazole Sodium (Pantoprazole 40 Mg Tablet) 40 mg PO DAILY [facility] Last Admin: 01/05/25 09:14 Dose: 40 mg Tamsulosin HCl (Tamsulosin 0.4 Mg Cap.Er.24h) 0.4 mg PO BID [facility] Last Admin: 01/05/25 09:14 Dose: 0.4 mg Social history: New senior apartment independent living. Sometimes use a cane and a walker. Alcohol occasionally. No other significant history of smoking Physical examination: VITAL SIGNS: 97.8, 72, 20, 124 x 73, 95% room air GENERAL: [, BMI 25.1 reclining in bed awake EYES: Pupils equal. Conjunctiva aileen l. HEENT: External appearance of nose and ears normal, oral cavity grossly normal. Diminished hearing NECK: JVD not raised; masses not palpable. HEART: First and second heart sounds are normal; no edema. LUNGS: Respiratory rate normal; clear to auscultation. ABDOMEN: Soft, nontender, liver spleen not palpable, no masses palpable. Mathews catheter with light-colored bloody urine PSYCH: Alert and oriented x3; mood and affect bit anxious l. MUSCULOSKELETAL:No Clubbing/cyanosis;muscles-grossly intact. 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 Left inguinal mass with indeterminate density. There are tail of the pancreas 1.5 cm. Findings suggestive of hepatic cyst. Assessment and plan: - Acute on chronic blood clots and the patient underwent tumor cancers removed in October [address] Chino. Patient also had a few bouts of UTI with antibiotics.: Hematuria: Not improving Presents now again with hematuria blood clots, dysuria. Frequency. Urgency. Also precipitated by being on Eliquis.hold. Also hold Plavix IV ceftriaxone. Urine culture pending. Dr. Montejo from urology: Cystoscopy on January 04. Cauterization of bleeding areas done. Blood clot was evacuated. 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 Diagnosed October 2024 Follow-up with urologist Dr. Chino - Acute recurrent UTI with recent instrumentation and tumor IV ceftriaxone -Atrial fibrillation Eliquis on hold because of bleeding. 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 Hold for now. Because of bleeding. Lipitor. Lopressor. - Essential hypertension Lopressor - Diabetes mellitus type 2, on oral hypoglycemic Jardiance. Glimepiride hold for now. 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 Feeling better. Repeat labs tomorrow. Hopefully can be discharged tomorrow. Past Medical History Past Medical History: Atrial Fibrillation, Cancer, Diabetes Mellitus, Deep Vein Thrombosis (DVT), Hyperlipidemia, Hypertension, Myocardial Infarction ([place]), Prostate Disorder, Skin Disorder Additional Past Medical History / Comment(s): gout, bloody urine, lft leg dvt, skin cancer, gets "shot once a month for skin sores" (bellous pempthygoid) Last Myocardial Infarction Date:: 2022 History of Any Multi-Drug Resistant Organisms: None Reported Past Surgical History: Bladder Surgery, Cholecystectomy, Heart Catheterization With Stent Additional Past Surgical History / Comment(s): repaired ulcer, bladder tumor removed 11/19 Past Anesthesia/Blood Transfusion Reactions: No Reported Reaction Date of Last Stent Placement:: 2022 Past Psychological History: Anxiety Smoking Status: Former smoker Past Alcohol Use History: Occasional Additional Past Alcohol Use History / Comment(s): quit 1961 Past Drug Use History: None Reported
[2025-01-05 20:15] LABS: Glucose,Whole Blood 252 mg/dL (70-110)
[2025-01-06 05:59] LABS: Basophils # (A) 0.05 10*3/uL (0.00-0.10); Basophils % (A) 0.6 %; Eosinophils # (A) 0.30 10*3/uL (0.04-0.35); Eosinophils % (A) 3.6 %; HCT 33.8 % (39.6-50.0); HGB 10.6 g/dL (13.0-17.0); Lymphocytes # (A) 1.88 10*3/uL (0.90-5.00); Lymphocytes % (A) 22.3 %; MCH 26.0 pg (27.0-32.0); MCHC 31.4 g/dL (32.0-37.0); MCV 83.0 fL (80.0-97.0); Monocytes # (A) 0.62 10*3/uL (0.20-1.00); Monocytes % (A) 7.4 %; Neutrophils # (A) 5.38 10*3/uL (1.80-7.70); Neutrophils % (A) 63.8 %; Platelet Count 142 10*3/uL (140-440); RBC 4.07 10*6/uL (4.40-5.60); RDW 15.7 % (11.5-14.5); WBC 8.42 10*3/uL (4.50-10.00)
[2025-01-06 06:28] LABS: African American GFR (CKD) 70 (>60 ml/min/1.73 sqM); Anion Gap 6 mmol/L; Blood Urea Nitrogen 17 mg/dL (9-20); Calcium 8.4 mg/dL (8.4-10.2); Carbon Dioxide 19 mmol/L (22-30); Chloride 109 mmol/L (98-107); Glucose 162 mg/dL (74-99); Non-African American GFR(CKD) 61 (>60 ml/min/1.73 sqM); Potassium 4.0 mmol/L (3.5-5.1); Sodium 134 mmol/L (137-145)
[2025-01-06 07:26] LABS: Glucose,Whole Blood 185 mg/dL (70-110)
[2025-01-06 12:15] LABS: Glucose,Whole Blood 225 mg/dL (70-110)
[2025-01-06 14:46] VITALS: BP 125/64; PULSE 66; RESP 16; TEMP 98
--- NOTE | 2025-01-06 16:24 | P.DS ---
Providers Date of admission: 01/03/25 23:09 Expected date of discharge: 01/06/25 Attending physician: Melvin Cintron Consults: 01/02/25 23:06 Consult Physician Urgent Consulting Provider: [place]o [place] Consult Reason/Comments: Hematuria status post procedure, UTI Do you want consulting provider notified?: Yes Primary care physician: Sushant L [facility] Course: Chief Complaint: Hematuria Very pleasant 89-year-old patient who follows with previously Dr. Sushant Mensah Chronic medical condition include atrial fibrillation, diabetes, hyperlipidemia, hypertension, previous [place], prostate disorder, gout, CAD with stent. Patient does take Eliquis for the atrial fibrillation. In October 2024 patient had a bladder tumor removed by Dr Chino. Following that patient's had urine infections and has been on antibiotics off-and-on. Patient does have urinary urgency and gets up Feudo at night. Also sometimes has dysuria. Has had hematuria On this occasion 2 days ago patient started having hematuria. Fullness of the bladder. Did pass blood clots. Denies any fever and chills. Patient's daughter at the bedside. January 04: Saw the patient this morning. Remains rather troubled because of hematuria and blood clots. And also dysuria and pelvic pain. I did speak to Dr Montejo this morning. He plans to take the patient to the OR this afternoon. For cystoscopy. I did speak to patient's daughter this afternoon. Remains on IV fluids IV ceftriaxone.. January 05: Patient underwent cystoscopy by Dr. Montejo. Cauterization was carried out. Hematuria greatly improved. Patient feels much better. Mathews catheter in place. Feeling better. Hemoglobin 11.2 January 06: Urine is cleared up quite a bit. To still blood-tinged. Spoke to Dr. Montejo. Nothing further to be offered right now. Patient is already off his blood thinners. Discussed at length with the patient. Patient to follow-up with Dr. Chino in the office. Hemoglobin remained stable. Discussion and discharge planning more than 35 minutes Social history: New senior apartment independent living. Sometimes use a cane and a walker. Alcohol occasionally. No other significant history of smoking Physical examination: VITAL SIGNS: 98, 66, 16, 125 x 64, 99% room air GENERAL: [, BMI 25.1 reclining in bed awake EYES: Pupils equal. Conjunctiva aileen l. HEENT: External appearance of nose and ears normal, oral cavity grossly normal. Diminished hearing NECK: JVD not raised; masses not palpable. HEART: First and second heart sounds are normal; no edema. LUNGS: Respiratory rate normal; clear to auscultation. ABDOMEN: Soft, nontender, liver spleen not palpable, no masses palpable. Mathews catheter with light-colored bloody urine PSYCH: Alert and oriented x3; mood and affect bit anxious l. MUSCULOSKELETAL:No Clubbing/cyanosis;muscles-grossly intact. 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 Left inguinal mass with indeterminate density. There are tail of the pancreas 1.5 cm. Findings suggestive of hepatic cyst. Assessment and plan: - Acute on chronic blood clots and the patient underwent tumor cancers removed in October [address] Chino. Patient also had a few bouts of UTI with antibiotics.: Hematuria: Not improving Presents now again with hematuria blood clots, dysuria. Frequency. Urgency. Also precipitated by being on Eliquis.hold. Also hold Plavix IV ceftriaxone. Urine culture pending. Dr. Montejo from urology: Cystoscopy on January 04. Cauterization of bleeding areas done. Blood clot was evacuated. 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 Diagnosed October 2024 Follow-up with urologist Dr. Chino -No UTI DC ceftriaxone -Atrial fibrillation Eliquis discontinued because of bleeding recurrent -Hyperlipidemia Lipitor 20 mg nightly - Metabolic acidosis from kidney disease: sodium bicarbonate drip - BPH Proscar 5 mg nightly Flomax 0.4 mg twice daily - CAD with stent Patient is on Because of bleeding. Lipitor. Lopressor. Plavix was also held because of bleeding. This could be resumed outpatient. - Essential hypertension Lopressor - Diabetes mellitus type 2, on oral hypoglycemic Jardiance. Glimepiride decreased to 4 mg daily. 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) Last Myocardial Infarction Date:: 2022 History of Any Multi-Drug Resistant Organisms: None Reported Past Surgical History: Bladder Surgery, Cholecystectomy, Heart Catheterization With Stent Additional Past Surgical History / Comment(s): repaired ulcer, bladder tumor removed 11/19 Past Anesthesia/Blood Transfusion Reactions: No Reported Reaction Date of Last Stent Placement:: 2022 Past Psychological History: Anxiety Smoking Status: Former smoker Past Alcohol Use History: Occasional Additional Past Alcohol Use History / Comment(s): quit 1961 Past Drug Use History: None Reported Plan - Discharge Summary New Discharge Prescriptions: Continue hydrOXYzine HCL 10 mg PO HS Empagliflozin [Jardiance] 25 mg PO DAILY Semaglutide [Ozempic] 1 mg SQ SA Pantoprazole [Protonix] 40 mg PO DAILY Metoprolol Tartrate [Lopressor] 25 mg PO BID Tamsulosin [Flomax] 0.4 mg PO BID Finasteride [Proscar] 5 mg PO HS Atorvastatin [Lipitor] 20 mg PO HS Cetirizine HCl 10 mg PO DAILY Changed Glimepiride 4 mg PO DAILY #0 Discontinued Clopidogrel [Plavix] 75 mg PO DAILY Losartan [Cozaar] 25 mg PO DAILY Apixaban [Eliquis] 5 mg PO BID Discharge Medication List Atorvastatin [Lipitor] 20 mg PO HS 10/24/24 [History] Cetirizine HCl 10 mg PO DAILY 10/24/24 [History] Empagliflozin [Jardiance] 25 mg PO DAILY 10/24/24 [History] Finasteride [Proscar] 5 mg PO HS 10/24/24 [History] Metoprolol Tartrate [Lopressor] 25 mg PO BID 10/24/24 [History] Tamsulosin [Flomax] 0.4 mg PO BID 10/24/24 [History] hydrOXYzine HCL 10 mg PO HS 10/24/24 [History] Pantoprazole [Protonix] 40 mg PO DAILY 11/03/24 [History] Semaglutide [Ozempic] 1 mg SQ SA 11/03/24 [History] Glimepiride 4 mg PO DAILY #0 01/06/25 [Rx] Follow up Appointment(s)/Referral(s): Rancho Chino MD [STAFF PHYSICIAN] - 01/08/25 Zac Dangelo MD [REFERRING] - 1 Week Discharge Disposition: HOME SELF-CARE
== END 2025-01-06 15:58 | disposition home or self-care (01) | DRG 663 ==
LOC: EC 17:53 → 5NMEDONC 23:08 → OBSVTOIN 01-03 23:09
PROVIDERS: ADMIT Hospitalist; ATTEND Hospitalist
PROC: 0TCB8ZZ Extirpation of Matter from Bladder, Via Natural or Artificial Opening Endoscopic (ICD-10-PCS; 2025-01-04)
PROC: 0W3R8ZZ Control Bleeding in Genitourinary Tract, Via Natural or Artificial Opening Endoscopic (ICD-10-PCS; principal; 2025-01-04 08:20)
DX: C67.9 Malignant neoplasm of bladder, unspecified (principal); D68.32 Hemorrhagic disorder due to extrinsic circulating anticoagulants; K86.2 Cyst of pancreas; Z66 Do not resuscitate; D63.1 Anemia in chronic kidney disease; E11.22 Type 2 diabetes mellitus with diabetic chronic kidney disease; N18.30 Chronic kidney disease, stage 3 unspecified; I12.9 Hypertensive chronic kidney disease with stage 1 through stage 4 chronic kidney disease, or unspecified chronic kidney disease; E87.20 Acidosis, unspecified; I48.91 Unspecified atrial fibrillation; E78.5 Hyperlipidemia, unspecified; R31.0 Gross hematuria; N40.0 Benign prostatic hyperplasia without lower urinary tract symptoms; I25.10 Atherosclerotic heart disease of native coronary artery without angina pectoris; N32.89 Other specified disorders of bladder; T45.515A Adverse effect of anticoagulants, initial encounter; I25.2 Old myocardial infarction; Z95.5 Presence of coronary angioplasty implant and graft; Z79.84 Long term (current) use of oral hypoglycemic drugs; Z86.718 Personal history of other venous thrombosis and embolism; Z87.891 Personal history of nicotine dependence; Z79.01 Long term (current) use of anticoagulants; Z79.02 Long term (current) use of antithrombotics/antiplatelets; Z79.85 Long-term (current) use of injectable non-insulin antidiabetic drugs; Z79.899 Other long term (current) drug therapy
CPT/HCPCS: 36415; 74176; 80048; 80053; 81001; 85025; 85610; 85730; 87040; 87086; 93005; 96361; 96374; 99285